=== PATIENT | female | born 1950 | race Caucasian/White ===

== ENCOUNTER 2016-11-08 01:51 | Emergency (ER) | payer MEDICARE, OTHER ==
[~2016-11-08] VITALS: Ht 167.6 cm; Wt 68.0 kg
[2016-11-08] MEDS ORDERED: ASPI-586 PO (02:27)
[2016-11-08] MEDS ORDERED: Fish Oil (02:27)
[2016-11-08] MEDS ORDERED: Omeprazole (02:27)
[2016-11-08] MEDS ORDERED: Tumeric (02:27)
[2016-11-08] MEDS ORDERED: Vitamin C (02:27)
[2016-11-08] MEDS ORDERED: Vitamin D (02:27)
[2016-11-08] MEDS ORDERED: Vitamin B (02:27)
[2016-11-08 02:47] LABS: BASOPHILS # (AUTO) 0.1 10^3/uL (0.0-0.1); BASOPHILS % (AUTO) 1 % (0-10); EOSINOPHILS # (AUTO) 0.2 10^3/uL (0.0-0.3); EOSINOPHILS % (AUTO) 2 % (0-10); LYMPHOCYTES # (AUTO) 3.7 X 10^3 (1.0-4.0); LYMPHOCYTES % (AUTO) 35 % (12-44); MEAN CORPUSCULAR HEMOGLOBIN 30 PG (25-34); MEAN CORPUSCULAR HGB CONC 33 G/DL (32-36); MEAN CORPUSCULAR VOLUME 88 FL (80-99); MEAN PLATELET VOLUME 9.1 FL (7.4-10.4); MONOCYTES # (AUTO) 1.3 X 10^3 (0.0-1.0); MONOCYTES % (AUTO) 12 % (0-12); NEUTROPHILS # (AUTO) 5.2 X 10^3 (1.8-7.8); NEUTROPHILS % (AUTO) 50 % (42-75); PLATELET COUNT 394 10^3/uL (130-400); RED BLOOD COUNT 4.38 10^6/uL (4.35-5.85); RED CELL DISTRIBUTION WIDTH 13.8 % (10.0-14.5); WHITE BLOOD COUNT 10.5 10^3/uL (4.3-11.0)
[2016-11-08 02:50] LABS: INR 0.9 (0.8-1.4); PROTHROMBIN TIME PATIENT 11.6 SEC (12.2-14.7)
[2016-11-08 03:02] LABS: ALANINE AMINOTRANSFERASE 25 U/L (0-55); ALBUMIN 4.2 G/DL (3.2-4.5); ANION GAP 15 MMOL/L (5-14); ASPARTATE AMINO TRANSFERASE 23 U/L (5-34); BILIRUBIN,TOTAL 0.2 MG/DL (0.1-1.0); BLOOD UREA NITROGEN 18 MG/DL (7-18); BUN/CREATININE RATIO 25; CALCIUM 9.4 MG/DL (8.5-10.1); CARBON DIOXIDE 21 MMOL/L (21-32); CHLORIDE 103 MMOL/L (98-107); CREATININE SERUM 0.73 MG/DL (0.60-1.30); GFR ESTIMATED > 60; GLUCOSE 123 MG/DL (70-105); MAGNESIUM 2.2 MG/DL (1.8-2.4); SODIUM 139 MMOL/L (135-145); TOTAL PROTEIN 7.7 G/DL (6.4-8.2)
--- NOTE | 2016-11-08 03:02 | ED Chest Pain ---
General Chief Complaint: Chest Pain Stated Complaint: CP Nursing Triage Note: History of 3 days of chest pain at HS. Pt hurting across chest thru back, started at 1900 tonight. Pt hx GERD and Hiatal Hernia. Nursing Sepsis Screen: No Definite Risk Source: patient Exam Limitations: no limitations History of Present Illness Time seen by provider: 01:54 Initial Comments This pleasant 66-year-old woman presents to the emergency room with complaints of chest pain in the evenings the past 3 nights. Pain occurs when lying flat but dissipates when upright. She notices no exacerbation with physical activity. She has no history of cardiovascular disease. She does have significant history of GI disease including erosive esophagitis, hiatal hernia, and acid reflux. She takes omeprazole daily. She reports having some wine 3 nights ago before symptoms started. Patient is noted to be clearing her throat frequently which she believes to be related to acid reflux. Tonight pain started at 19:00. She denies any pain during assessment. Allergies and Home Medications Allergies Coded Allergies: Penicillins (Unverified Allergy, Unknown, 12/24/14) Home Medications Aspirin 81 Mg Tablet.dr, 81 MG PO DAILY, (Reported) Sucralfate 1 Gm/10 Ml Oral.susp, 1 GM PO QID, #1200 30 minutes before meals and bedtime. Shake well before use Prescribed by: LUIS BROWER on 11/08/16 0331 [Fish Oil] , (Reported) [Omeprazole] , (Reported) [Tumeric] , (Reported) [Vitamin B] , (Reported) [Vitamin C] , (Reported) [Vitamin D] , (Reported) Review of Systems Constitutional: no symptoms reported EENTM: No Symptoms Reported Respiratory: No Symptoms Reported Cardiovascular: See HPI Gastrointestinal: See HPI Genitourinary: No Symptoms Reported Musculoskeletal: no symptoms reported Skin: no symptoms reported Psychiatric/Neurological: No Symptoms Reported Endocrine: No Symptoms Reported Past Fyilvco-Ofciom-Poheco Hx Patient Social History Alcohol Use: Occasionally Uses Recreational Drug Use: No Smoking Status: Former Smoker Type Used: Cigarettes Recent Foreign Travel: No Contact w/Someone Who Travel: No Recent Infectious Disease Expo: No Recent Hopitalizations: No Seasonal Allergies Seasonal Allergies: No Surgeries HX Surgeries: Yes (Parotid tumor removal, Ignacio removal leg) Surgeries: Abdominal (endoscopy with polypectomy), Section Respiratory Hx Respiratory Disorders: No Cardiovascular Hx Cardiac Disorders: No Cardiac Disorders: High Cholesterol Neurological Hx Neurological Disorders: No Reproductive System Hx Reproductive Disorders: No Genitourinary Hx Genitourinary Disorders: No Gastrointestinal Hx Gastrointestinal Disorders: Yes (erosive esophagitis) Gastrointestinal Disorders: Gastroesophageal Reflux, Diverticulosis, Polyps, Hiatal Hernia Musculoskeletal Hx Musculoskeletal Disorders: Yes (Osteopenia) Endocrine Hx Endocrine Disorders: No HEENT HX ENT Disorders: No Cancer Hx Cancer: No Psychosocial Hx Psychiatric Problems: Yes Behavioral Health Disorders: Anxiety, Depression Integumentary HX Skin/Integumentary Disorder: No Blood Transfusions Hx Blood Disorders: No Physical Exam Vital Signs Vital Sign - Last 12Hours 11/08/16 01:57 Temp 97.4 Pulse 99 Resp 18 B/P (MAP) 168/100 Pulse Ox 98 O2 Delivery Room Air Capillary Refill : Less Than 3 Seconds General Appearance: No Apparent Distress, WD/WN HEENT: Normal ENT Inspection Neck: Normal Inspection Respiratory: Lungs Clear, Normal Breath Sounds, No Accessory Muscle Use, No Respiratory Distress, Other (chest mildly tender to palpation) Cardiovascular: Regular Rate, Rhythm, No Edema, No Murmur Gastrointestinal: Normal Bowel Sounds, Soft, Tenderness (epigastrium) Extremity: Normal Inspection, Non Tender, No Pedal Edema Neurologic/Psychiatric: Alert, Oriented x3, No Motor/Sensory Deficits, Normal Mood/Affect, whistle punk II-XII Norm as Tested Skin: Normal Color, Warm/Dry Progress/Results/Core Measures Results/Orders Lab Results Laboratory Tests Test 11/08/16 02:14 Range/Units White Blood Count 10.5 4.3-11.0 10^3/uL Red Blood Count 4.38 4.35-5.85 10^6/uL Hemoglobin 12.9 11.5-16.0 G/DL Hematocrit 39 35-52 % Mean Corpuscular Volume 88 80-99 FL Mean Corpuscular Hemoglobin 30 25-34 PG Mean Corpuscular Hemoglobin Concent 33 32-36 G/DL Red Cell Distribution Width 13.8 10.0-14.5 % Platelet Count 394 130-400 10^3/uL Mean Platelet Volume 9.1 7.4-10.4 FL Neutrophils (%) (Auto) 50 42-75 % Lymphocytes (%) (Auto) 35 12-44 % Monocytes (%) (Auto) 12 0-12 % Eosinophils (%) (Auto) 2 0-10 % Basophils (%) (Auto) 1 0-10 % Neutrophils # (Auto) 5.2 1.8-7.8 X 10^3 Lymphocytes # (Auto) 3.7 1.0-4.0 X 10^3 Monocytes # (Auto) 1.3 H 0.0-1.0 X 10^3 Eosinophils # (Auto) 0.2 0.0-0.3 10^3/uL Basophils # (Auto) 0.1 0.0-0.1 10^3/uL Prothrombin Time 11.6 L 12.2-14.7 SEC INR Comment 0.9 0.8-1.4 Activated Partial Thromboplast Time 28 24-35 SEC Sodium Level 139 135-145 MMOL/L Potassium Level 4.0 3.6-5.0 MMOL/L Chloride Level 103 98-107 MMOL/L Carbon Dioxide Level 21 21-32 MMOL/L Anion Gap 15 H 5-14 MMOL/L Blood Urea Nitrogen 18 7-18 MG/DL Creatinine 0.73 0.60-1.30 MG/DL Estimat Glomerular Filtration Rate > 60 BUN/Creatinine Ratio 25 Glucose Level 123 H 70-105 MG/DL Calcium Level 9.4 8.5-10.1 MG/DL Magnesium Level 2.2 1.8-2.4 MG/DL Total Bilirubin 0.2 0.1-1.0 MG/DL Aspartate Amino Transf (AST/SGOT) 23 5-34 U/L Alanine Aminotransferase (ALT/SGPT) 25 0-55 U/L Alkaline Phosphatase 92 40-136 U/L Myoglobin 21.6 10.0-92.0 NG/ML Troponin I < 0.30 <0.30 NG/ML Total Protein 7.7 6.4-8.2 G/DL Albumin 4.2 3.2-4.5 G/DL Lipase 16 8-78 U/L My Orders Orders - LUIS RANKIN MD Cbc With Automated Diff (11/08/16 02:41) Magnesium (11/08/16 02:41) Chest 1 View, Ap/Pa Only (11/08/16 02:41) Ekg Tracing (11/08/16 02:41) Cardiac Profile 1 (11/08/16 02:41) Comprehensive Metabolic Panel (11/08/16 02:41) Myoglobin Serum (4/26/17 02:41) Protime With Inr (11/08/16 02:41) Partial Thromboplastin Time (11/08/16 02:41) O2 (11/08/16 02:41) Monitor-Rhythm Ecg Trace Only (11/08/16 02:41) Lipid Panel (11/09/16 06:00) Saline Lock/Iv-Start (11/08/16 02:41) Lipase (11/08/16 02:41) Vital Signs/I&O Vital Sign - Last 12Hours 11/08/16 11/08/16 01:57 01:57 Temp 97.4 Pulse 99 Resp 18 B/P (MAP) 168/100 Pulse Ox 98 O2 Delivery Room Air Room Air Blood Pressure Mean: 122 Progress Note : Progress Note Cardiopulmonary workup was unremarkable. Patient had no pain during her ER visit. I suspect her pain is related to GI etiology triggered by alcohol consumption on Sunday. Her pattern of pain correlates well with acid reflux. Review of her chart reveals prior endoscopy showing esophagitis and hiatal hernia. Her throat clearing and irritation are probably related to laryngopharyngeal reflux. I have recommended increasing her PPI to twice daily dosing as well as adding Carafate. Dietary restrictions were reviewed. ECG Initial ECG Impression Date: Nov 08, 2016 Initial ECG Impression Time: 02:03 Initial ECG Rate: 96 Initial ECG Rhythm: Normal Sinus Initial ECG Intervals: Normal Initial ECG Impression: Normal Comment Normal sinus rhythm with no ST elevation or depression. No abnormal intervals or axis deviation. Diagnostic Imaging Diagonstic Imaging: Xray Plain Films/CT/US/NM/MRI: chest Comments Chest x-ray viewed by me. Report not yet available. No acute abnormalities appreciated. Departure Impression Impression: Primary Impression: Atypical chest pain Additional Impressions: Acid reflux Qualified Codes: K21.0 - Gastro-esophageal reflux disease with esophagitis Laryngopharyngeal reflux (LPR) Disposition: 01 HOME, SELF-CARE Condition: Improved Departure-Patient Inst. Decision time for Depature: 03:26 Referrals: JITENDRA WASHINGTON MD (PCP) Primary Care Physician Patient Instructions: Chest Pain That Is Not Caused by the Heart (DC), Acid Reflux (Gastroesophageal Reflux Disease), Adult (DC) Add. Discharge Instructions: Increase your omeprazole (Prilosec) to twice daily dosing. Add Carafate as prescribed 30 minutes before meals and bedtime. Follow-up with your physician to seek referral for upper and lower endoscopy. Avoid the following: Eating close to bedtime, large meals, caffeine, carbonation , chocolate, alcohol, tobacco products, tomato products, citrus fruits and juices, NSAID medications such as ibuprofen or naproxen, mint, spicy foods, fatty or greasy foods, or anything else you know irritates your stomach. All discharge instructions reviewed with patient and/or family. Voiced understanding. Scripts Sucralfate (Carafate) 1 Gm/10 Ml Oral.susp 1 GM PO QID, #1200 ML 30 minutes before meals and bedtime. Shake well before use Prov: LUIS RANKIN MD 11/08/16 LUIS RANKIN MD Nov 08, 2016 03:02
[2016-11-08 03:09] LABS: MYOGLOBIN SERUM 21.6 NG/ML (10.0-92.0)
[2016-11-08] MEDS ORDERED: SUCR1ORA5 PO (03:31)
[2016-11-08 03:40] VITALS: BP 149/114
--- NOTE | 2016-11-08 07:27 | Diagnostic Imaging Report ---
INDICATION: Chest pain. Comparison with 07/23/2010. FINDINGS: Single view examination of the chest fails to reveal evidence of active parenchymal pathology or pleural effusion. The cardiac silhouette is normal. IMPRESSION: Negative chest. No significant change since previous exam. Dictated by: Dictated on workstation # [id number]
== END 2016-11-08 03:40 | disposition home or self-care (01) ==
LOC: EDUNIT# 01:51 → ER 01:54
DX: K21.9 Gastro-esophageal reflux disease without esophagitis (principal); R07.89 Other chest pain; Z87.891 Personal history of nicotine dependence; Z79.899 Other long term (current) drug therapy
CPT/HCPCS: 36415; 71010; 80053; 83690; 83735; 83874; 84484; 85025; 85610; 85730; 93005; 93041

== ENCOUNTER 2016-11-10 14:01 | Inpatient (IN) | payer MEDICARE, OTHER ==
[2016-11-10] VITALS (9 sets, daily range): BP systolic 95–133; BP diastolic 67–84
[~2016-11-10] VITALS: Ht 167.6 cm; Wt 70.8 kg
[~2016-11-10 14:01] MED LIST: ASPI-586 PO; Fish Oil; Omeprazole; SUCR1ORA5 PO; Tumeric; Vitamin B; Vitamin C; Vitamin D
[2016-11-10] MEDS ORDERED: HEParin 1000 UNIT/ML (10ML VIAL) FOR BOLUS ONE (14:11)
[2016-11-10] MEDS ORDERED: MIDAZOLAM 5 MG/5 ML (VERSED) VIAL ONE (14:11)
[2016-11-10] MEDS ORDERED: NITROGLYCERIN DRIP 25 MG/D5W 250 ML IV ONE (14:11)
[2016-11-10] MEDS ORDERED: fentaNYL INJECTION 100 MCG/2 ML AMP ONE (14:11)
[2016-11-10] MEDS ORDERED: LIDOCAINE 1% INJ 20 ML (XYLOCAINE) VIAL ONE (14:11)
[2016-11-10] MEDS ORDERED: NS IV 1000 ML 1,000 ML ONE (14:11)
[2016-11-10] MEDS ORDERED: HEParin (CATH LAB) 2,000 ML IV ONE (14:12)
[2016-11-10] MEDS ORDERED: CLOPIDOGREL 300 MG (PLAVIX) TABLET PO ONE (14:15)
[2016-11-10] MEDS ORDERED: ASPIRIN 81 MG CHEW (CHILDREN'S ASA) PO ONE (14:15)
--- NOTE | 2016-11-10 14:15 | ED Chest Pain ---
General Stated Complaint: CHEST PAIN Source: patient Exam Limitations: no limitations History of Present Illness Time seen by provider: 14:13 Initial Comments To ER with t chest pain began earlier today became much more intense about an hour ago. She requested to come the emergency room 15 minutes ago. She is also diaphoretic. Severity/Quality: severe Location: central Radiation: no radiation ASA po RN PLASTICS: No NTG SL RN PLASTICS: No Allergies and Home Medications Allergies Coded Allergies: Penicillins (Unverified Allergy, Unknown, 12/24/14) Home Medications Aspirin 81 Mg Tablet.dr, 81 MG PO DAILY, (Reported) Sucralfate 1 Gm/10 Ml Oral.susp, 1 GM PO QID, #1200 30 minutes before meals and bedtime. Shake well before use Prescribed by: LUIS BROWER on 11/08/16 0331 [Fish Oil] , (Reported) [Omeprazole] , (Reported) [Tumeric] , (Reported) [Vitamin B] , (Reported) [Vitamin C] , (Reported) [Vitamin D] , (Reported) Review of Systems Constitutional: see HPI EENTM: No Symptoms Reported Respiratory: No Symptoms Reported Cardiovascular: See HPI, Chest Pain Gastrointestinal: No Symptoms Reported Genitourinary: No Symptoms Reported Musculoskeletal: no symptoms reported Skin: no symptoms reported Psychiatric/Neurological: No Symptoms Reported Endocrine: No Symptoms Reported Past Jamipjc-Thbpfr-Gdtkbo Hx Patient Social History Type Used: Cigarettes Recent Hopitalizations: No Seasonal Allergies Seasonal Allergies: No Surgeries HX Surgeries: Yes (Parotid tumor removal, Ignacio removal leg) Surgeries: Abdominal, Section Respiratory Hx Respiratory Disorders: No Cardiovascular Hx Cardiac Disorders: No Cardiac Disorders: High Cholesterol Neurological Hx Neurological Disorders: No Reproductive System Hx Reproductive Disorders: No Genitourinary Hx Genitourinary Disorders: No Gastrointestinal Hx Gastrointestinal Disorders: Yes (erosive esophagitis) Gastrointestinal Disorders: Gastroesophageal Reflux, Diverticulosis, Polyps, Hiatal Hernia Musculoskeletal Hx Musculoskeletal Disorders: Yes (Osteopenia) Endocrine Hx Endocrine Disorders: No HEENT HX ENT Disorders: No Cancer Hx Cancer: No Psychosocial Hx Psychiatric Problems: Yes Behavioral Health Disorders: Anxiety, Depression Integumentary HX Skin/Integumentary Disorder: No Blood Transfusions Hx Blood Disorders: No Physical Exam Vital Signs Capillary Refill : General Appearance: No Apparent Distress, WD/WN HEENT: PERRL/EOMI, TMs Normal Neck: Full Range of Motion, Normal Inspection Respiratory: Normal Breath Sounds, No Accessory Muscle Use, No Respiratory Distress Cardiovascular: Regular Rate, Rhythm, Normal Peripheral Pulses Gastrointestinal: Normal Bowel Sounds, Non Tender, Soft Extremity: Normal Capillary Refill, Normal Inspection Neurologic/Psychiatric: Alert, Oriented x3, No Motor/Sensory Deficits Skin: Normal Color, Warm/Dry Progress/Results/Core Measures Results/Orders My Orders Orders - TAMI KOTHARI APRN Cbc With Automated Diff (11/10/16 14:10) Magnesium (11/10/16 14:10) Chest 1 View, Ap/Pa Only (11/10/16 14:10) Ekg Tracing (11/10/16 14:10) Cardiac Profile 1 (11/10/16 14:10) Comprehensive Metabolic Panel (11/10/16 14:10) Myoglobin Serum (11/10/16 14:10) Protime With Inr (11/10/16 14:10) Partial Thromboplastin Time (11/10/16 14:10) O2 (11/10/16 14:10) Monitor-Rhythm Ecg Trace Only (11/10/16 14:10) Lipid Panel (11/11/16 06:00) Aspirin Chewable Tablet (Baby Aspirin Ch (11/10/16 14:15) Saline Lock/Iv-Start (11/10/16 14:10) Clopidogrel Tablet (Plavix Tablet) (11/10/16 14:15) ECG Initial ECG Impression: Acute IN Comment ST elevation in leads [address] depression in lead aVl. Departure Communication Progress Notes 1412-Dr. Cabrales is here to see the patient Impression Impression: Primary Impression: STEMI (ST elevation myocardial infarction) Disposition: ADMITTED INPATIENT Condition: Stable Decision to Admit Reason: Admit from ER (General) Decision to Admit/Date: Nov 10, 2016 Time/Decision to Admit Time: 14:15 Departure-Patient Inst. Referrals: JITENDRA WASHINGTON MD (PCP/Family) Primary Care Physician TAMI KOTHARI APRN Nov 10, 2016 14:15
[2016-11-10 14:25] LABS: BASOPHILS # (AUTO) 0.1 10^3/uL (0.0-0.1); BASOPHILS % (AUTO) 1 % (0-10); EOSINOPHILS # (AUTO) 0.1 10^3/uL (0.0-0.3); EOSINOPHILS % (AUTO) 1 % (0-10); LYMPHOCYTES # (AUTO) 4.4 X 10^3 (1.0-4.0); LYMPHOCYTES % (AUTO) 34 % (12-44); MEAN CORPUSCULAR HEMOGLOBIN 30 PG (25-34); MEAN CORPUSCULAR HGB CONC 34 G/DL (32-36); MEAN CORPUSCULAR VOLUME 88 FL (80-99); MONOCYTES # (AUTO) 1.7 X 10^3 (0.0-1.0); MONOCYTES % (AUTO) 13 % (0-12); NEUTROPHILS # (AUTO) 6.8 X 10^3 (1.8-7.8); NEUTROPHILS % (AUTO) 52 % (42-75); PLATELET COUNT 425 10^3/uL (130-400); RED BLOOD COUNT 4.34 10^6/uL (4.35-5.85); RED CELL DISTRIBUTION WIDTH 13.8 % (10.0-14.5); WHITE BLOOD COUNT 13.1 10^3/uL (4.3-11.0)
--- NOTE | 2016-11-10 14:25 | Cardiac Procedure Note-CS/ASA ---
Pre-Procedure Note Pre-Op Procedure Note H&P Reviewed The H&P was reviewed, patient examined and no changes noted. Date H&P Reviewed: Nov 10, 2016 Time H&P Reviewed: 14:25 Conscious Sedation Pre-Proced Time Reviewed: 14:25 ASA Class: 3 Airway Mallampati Classification: ([place] appropriate class) I. II. III, IV Lungs Heart ASA score ASA 1: a normal healthy patient ASA 2: a patient with a mild systemic disease (mid diabetes, controlled hypertension, obesity x ASA 3: a patient with a severe systemic disease that limits activity (angina , COPD, prior Myocardial infarction) ASA 4: a patient with an incapacitating disease that is a constant threat to life (CHF, renal failure) ASA 5: a moribund patient not expected to survive 24 hrs. (ruptured aneurysm) ASA 6: a declared brain patient whose organs are being harvested. For emergent operations, add the letter E after the classification Grade 3 Sedation Plan: Analgesia, Amnesia, Plan communicated to team members, Discussed options with patient/fam, Discussed risks with patient/fam Note The patient is an appropriate candidate to undergo the planned procedure, sedation, and anesthesia. The patient immediately re-assessed prior to indication. RON CHATMAN MD Nov 10, 2016 14:25
--- NOTE | 2016-11-10 14:25 | Cardiology History & Physical ---
HPI-Cardiology Cardiology Consultation Date of Consultation 11/10/16 Date of Admission Indication: chest pain HPI 66-year-old lady with no significant past medical history has been having chest pain on and off for the past few weeks seen in the emergency room recently, this afternoon she started having sudden onset chest pain described it as dull achiness in the retrosternal area satiated with diaphoresis and shortness of breath. Came into the emergency room and noted to have ST elevation myocardial infarction. Upper my evaluation she was still having some chest pain, denied any palpitation, and I do any syncope or near syncopal episode, was having active ST elevation, decided to proceed with emergency cardiac catheterization. PMH-Cardiology Seasonal Allergies Seasonal Allergies: No Surgeries HX Surgeries: Yes (Parotid tumor removal, Ignacio removal leg) Respiratory Hx Respiratory Disorders: No Cardiovascular Hx Cardiovascular Disorders: No Neurological Hx Neurological Disorders: No Reproductive System Hx Reproductive Disorders: No Genitourinary Hx Genitourinary Disorders: No Gastrointestinal Hx Gastrointestinal Disorders: Yes (erosive esophagitis) Gastrointestinal Disorders: Gastroesophageal Reflux, Diverticulosis, Polyps, Hiatal Hernia Musculoskeletal Hx Musculoskeletal Disorders: Yes (Osteopenia) Endocrine Hx Endocrine Disorders: No HEENT HX ENT Disorders: No Cancer Hx Cancer: No Psychosocial Hx Psychiatric Problems: Yes Behavioral Health Disorders: Anxiety, Depression Integumentary HX Skin/Integumentary Disorder: No Blood Transfusions Hx Blood Disorders: No Other PMHx Other PMHx: carotid tumor surgery in the remote past Social History Patient Social History Smoking: Former smoker Family Hx Other family history of heart disease and hypertension ROS-Cardiology Review of Systems General: No Chills, No Night Sweats, Fatigue, Malaise, No Appetite HEENT: No Head Aches, No Visual Changes, No Eye Pain, No Ear Pain, No Dysphasia , No Sinus Congestion, No Post Nasal Drip, No Sore Throat Pulmonary: Dyspnea, No Cough, No Pleuritic Chest Pain Cardiovascular: Chest Pain, No: Edema, Lt Headedness, Orthopnea, Palpitations, Paroxysmal Noc. Dyspnea Gastrointestinal: No: Abdominal Pain, Constipation, Diarrhea, Hematochezia, Melena, Nausea, Vomiting Genitourinary: No Dysuria, No Frequency, No Incontinence, No Hematuria, No Retention Musculoskeletal: No: arm pain, back pain, foot pain, hand pain, leg pain, neck pain, shoulder pain Neurological: No: Change in speech, Confusion, Incoordination, Numbness, Seizures, Weakness Home Medications & Allergies Allergies: Coded Allergies: Penicillins (Unverified Allergy, Unknown, 12/24/14) Home Medication List Reviewed: Yes Exam-Cardiology Exam General Appearance: Alert, Oriented X3, Cooperative, No Acute Distress HEENT: Atraumatic, PERRLA Respiratory: Clear to Auscultation, Normal Air Movement Cardiovascular: Regular Rate, Normal S1, Normal S2, No Murmurs Abdominal: Normal Bowel Sounds, Soft, No Tenderness, No Hepatosplenomegaly, No Masses Extremities: No Clubbing, No Cyanosis, No Edema, Normal Pulses, No Tenderness/ Swelling Skin: No Rashes, No Breakdown, No Significant Lesion Neuro: Normal Gait, Normal Speech, Strength at 5/5 X4 Ext, Normal Tone, Sensation Intact Psych/Mental Status: Mental Status NL, Mood NL Results Labs Labs Laboratory Tests 11/10/16 14:18: White Blood Count 13.1H, Red Blood Count 4.34L, Hemoglobin 13.0, Hematocrit 38, Mean Corpuscular Volume 88, Mean Corpuscular Hemoglobin 30, Mean Corpuscular Hemoglobin Concent 34, Red Cell Distribution Width 13.8, Platelet Count 425H, Mean Platelet Volume 9.0, Neutrophils (%) (Auto) 52, Lymphocytes (%) (Auto) 34, Monocytes (%) (Auto) 13H, Eosinophils (%) (Auto) 1, Basophils (%) (Auto) 1, Neutrophils # (Auto) 6.8, Lymphocytes # (Auto) 4.4H, Monocytes # (Auto) 1.7H, Eosinophils # (Auto) 0.1, Basophils # (Auto) 0.1, Prothrombin Time 11.6L, INR Comment 0.9, Activated Partial Thromboplast Time 21L, Sodium Level 141, Potassium Level 3.6, Chloride Level 105, Carbon Dioxide Level 21, Anion Gap 15H , Blood Urea Nitrogen 16, Creatinine 0.86, Estimat Glomerular Filtration Rate > 60, BUN/Creatinine Ratio 19, Glucose Level 157H, Calcium Level 9.3, Magnesium Level 2.2, Total Bilirubin 0.4, Aspartate Amino Transf (AST/SGOT) 24, Alanine Aminotransferase (ALT/SGPT) 26, Alkaline Phosphatase 85, Myoglobin 87.5, Troponin I < 0.30, Total Protein 7.5, Albumin 4.1 A/P-Cardiology Admission Diagnosis ST elevation ND Coronary artery disease Hypertension Hyperlipidemia Assessment/Plan Acute ST elevation myocardial infarction in the inferior wall, underwent emergency cardiac catheterization. Feeling better at this time Coronary artery disease, total occlusion of the right coronary artery successful complex intervention with stenting of the right coronary artery using 2 drug-eluting stent Promus Premier 2.523 and 2.7528 both expanded to 3.5 mm with excellent results. 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
[2016-11-10] MEDS ORDERED: niCARdipine 25 MG/10 ML (CARDENE) AMP IV ONE (14:33)
[2016-11-10] MEDS ORDERED: NS (IVPB) 250 ML ONE (14:33)
[2016-11-10 14:34] LABS: INR 0.9 (0.8-1.4); PROTHROMBIN TIME PATIENT 11.6 SEC (12.2-14.7)
--- NOTE | 2016-11-10 14:37 | Diagnostic Imaging Report ---
INDICATION: Substernal chest pain radiating to the back, intermittent x2 weeks.. TECHNIQUE: Single view chest 2:18 PM. CORRELATION STUDY: 11/08/2016 FINDINGS: The heart size, mediastinal configuration and pulmonary vascularity are within normal limits. The lungs are clear with no consolidating infiltrate. There is no significant effusion or pneumothorax. IMPRESSION: 1. Stable, negative portable chest. Dictated by: Dictated on workstation # [id number]
[2016-11-10 14:45] LABS: ALANINE AMINOTRANSFERASE 26 U/L (0-55); ALBUMIN 4.1 G/DL (3.2-4.5); ANION GAP 15 MMOL/L (5-14); ASPARTATE AMINO TRANSFERASE 24 U/L (5-34); BILIRUBIN,TOTAL 0.4 MG/DL (0.1-1.0); BLOOD UREA NITROGEN 16 MG/DL (7-18); BUN/CREATININE RATIO 19; CALCIUM 9.3 MG/DL (8.5-10.1); CARBON DIOXIDE 21 MMOL/L (21-32); CHLORIDE 105 MMOL/L (98-107); CREATININE SERUM 0.86 MG/DL (0.60-1.30); GFR ESTIMATED > 60; GLUCOSE 157 MG/DL (70-105); MAGNESIUM 2.2 MG/DL (1.8-2.4); POTASSIUM 3.6 MMOL/L (3.6-5.0); SODIUM 141 MMOL/L (135-145); TOTAL PROTEIN 7.5 G/DL (6.4-8.2)
[2016-11-10 14:52] LABS: MYOGLOBIN SERUM 87.5 NG/ML (10.0-92.0)
[2016-11-10] MEDS ORDERED: PATIENT MAY USE OWN MEDS, ALL PO SCH (15:15)
[2016-11-10] MEDS ORDERED: ISOSORBIDE MONONITRATE 30 MG (IMDUR) TAB PO NR (15:45)
[2016-11-10] MEDS ORDERED: OMG1KC PO (16:04)
[2016-11-10] MEDS ORDERED: PYRI100T2 PO (16:04)
[2016-11-10] MEDS ORDERED: CHOL10007 PO (16:04)
[2016-11-10] MEDS ORDERED: ASCO-262 PO (16:04)
[2016-11-10] MEDS ORDERED: TURM500C4 PO (16:04)
[2016-11-10] MEDS ORDERED: OMEP20TA33 PO (16:04)
[2016-11-10] MEDS ORDERED: VITA400C60 PO (16:05)
[2016-11-10] MEDS ORDERED: ALPR0.5T7 PO (16:06)
[2016-11-10] MEDS: NS IV 1000 ML 1,000 ML IV SCH (16:06)
[2016-11-10] MEDS ORDERED: CATHETER FLUSH 10 ML SYR IV PRN (16:15)
[2016-11-10] MEDS: OMEGA 3 (FISH OIL) 1000 MG CAP PO SCH (19:10)
[2016-11-10] MEDS: ACETAMINOPHEN 500 MG TAB (TYLENOL) PO PRN (20:32)
[2016-11-10] MEDS ORDERED: ATORVASTATIN 80 MG (LIPITOR) TABLET PO SCH (21:00)
[2016-11-11] VITALS (14 sets, daily range): BP systolic 100–144; BP diastolic 59–116
[2016-11-11] MEDS: NS IV 1000 ML 1,000 ML IV SCH (01:14)
--- NOTE | 2016-11-11 04:37 | CARDIAC CATHETERIZATION ---
DATE OF SERVICE: REFERRING PHYSICIAN: Dr. Fonseca. INDICATION: Acute ST elevation myocardial infarction. BRIEF HISTORY: The patient is a 66-year-old lady admitted with acute ST elevation myocardial infarction. She was brought for emergency cardiac catheterization. PROCEDURE NOTE: The patient arrived to the hospital at 1401, had an EKG done at 1408. I was called at 1415 and the patient was brought to the phlebotomist medical lab assistant at 1421. The artery was opened at 1437. Door to thrombectomy device was 36 minutes. The patient was admitted with acute ST elevation myocardial infarction to the inferior wall. microbiology lab analyst team was called. We proceeded with emergency cardiac catheterization. The patient received aspirin and Plavix in the Emergency Room, placed on the cardiac catheterization table and then the right groin was prepped in a sterile fashion, local anesthesia applied and 6-Citizen [place] sheath was placed in the right femoral artery. A Alexander left was advanced to the left coronary system and then I advanced an SR guide to the right coronary system. I proceeded with advancement of a BMW wire after giving the patient 5000 units of heparin. She has total occlusion of the proximal right coronary artery. I advanced the BMW wire and with advancement of the wire there was established flow. Then, I advanced an [place] catheter and thrombectomy was performed. Door to thrombectomy time was 36 minutes. Flow was established in the right coronary artery. She has severe disease at the proximal, mid and distal right coronary artery. I proceeded initially with balloon dilatation using 2.5 x 20 mm balloon, Emerge, then I proceeded with deployment of Xience Alpine stent 2.5 x 23 mm deployed distally, proximal stent overlapping it was 2.75 x 28 mm Xience Alpine, expanded under high pressure to 3 mm. Angiogram showed excellent result but I was still convinced that the artery can tolerate a larger stent. I proceeded with advancement of [place] Quantum balloon 3.5 x 15 mm and performed multiple inflations throughout the stent body of both stents and expanded both stents to 3.5 mm with excellent result. Angiogram at the end showed excellent result, no residual stenosis. Pigtail catheter was advanced to the left ventricular cavity. Left ventriculogram was done. Pullback LV to aorta was done. At the end of the procedure, sheath was removed, Mynx device deployed, hemostasis achieved. TOTAL CONTRAST USED: 96 mL. TOTAL RADIATION DOSES: 1848 mGy. FINDINGS: HEMODYNAMICS: LV pressure 127/20, end diastolic pressure of 20. Aortic pressure 135/82, mean of 107. ANATOMY: 1. Left main coronary artery is bifurcating to left anterior descending and left circumflex artery with no significant obstructive disease. 2. Left anterior descending artery is a smaller artery with mild disease, nonobstructive disease, 40% to 50% stenosis at the mid LAD. 3. Left circumflex artery is moderate in size with 50% stenosis at the mid left circumflex system, nonobstructive disease. 4. Right coronary artery is a large dominant artery totally occluded proximally, successful thrombectomy with door to thrombectomy device 36 minutes, balloon angioplasty with 2 overlapping stent deployments using Xience Alpine 2.5 x 23 mm and 2.75 x 28 mm overlapping, expanding to 3.5 mm with excellent results. 5. Normal left ventricular size. Inferior wall is slightly hypokinetic, but systolic function is preserved. Estimated ejection fraction is 60%. CONCLUSIONS: 1. Acute ST elevation myocardial infarction with total occlusion of the right coronary artery that appeared to be much smaller at the beginning of the procedure. Successful thrombectomy with door to thrombectomy device 36 minutes. Successful balloon angioplasty with stent deployment of 2 stents, 2.5 x 23 mm and 2.75 x 28 mm Xience Alpine overlapping, expanded to 3.5 mm, both stents with excellent results. 2. 40% to 50% stenosis in the mid left anterior descending and mid circumflex artery. 3. Normal left ventricular size with mild hypokinesia of the inferior wall with estimated ejection fraction 60%. DISCUSSION AND RECOMMENDATIONS: I will continue maximizing medical therapy. Job ID: [id number] DocumentID: [id number] Dictated Date: 11/10/2016 16:33:50 Cashier [employer] Date: 11/11/2016 04:36:54 Dictated By: RON CHATMAN MD
[2016-11-11 04:58] LABS: MEAN PLATELET VOLUME 9.2 FL (7.4-10.4); RED BLOOD COUNT 3.48 10^6/uL (4.35-5.85); RED CELL DISTRIBUTION WIDTH 13.8 % (10.0-14.5); WHITE BLOOD COUNT 12.7 10^3/uL (4.3-11.0)
[2016-11-11 05:39] LABS: TROPONIN I 7.41 NG/ML (<0.30)
[2016-11-11] MEDS: OMEGA 3 (FISH OIL) 1000 MG CAP PO SCH ×2 (08:14→16:18)
[2016-11-11] MEDS: CLOPIDOGREL 75 MG (PLAVIX) TABLET PO SCH (08:15)
[2016-11-11] MEDS: ASPIRIN E.C. 81 MG (ECOTRIN) TAB PO SCH (08:15)
[2016-11-11] MEDS: ACETAMINOPHEN 500 MG TAB (TYLENOL) PO PRN ×2 (08:15→16:18)
--- NOTE | 2016-11-11 08:16 | Cardiology Progress Note ---
Subjective Subjective/Events-last exam patient is laying down in bed, still having mild chest pain on and off, having headache, expressed that she was unable to tolerate statin in the past, discussed in length the management plan, I agreed on trying low-dose Crestor and evaluate her tolerance and response Review of Systems General: No Chills, No Night Sweats, No Fatigue, No Malaise, No Appetite, Other (headache) HEENT: No Head Aches, No Visual Changes, No Eye Pain, No Ear Pain, No Dysphasia , No Sinus Congestion, No Post Nasal Drip, No Sore Throat, No Other Pulmonary: No Dyspnea, No Cough, No Pleuritic Chest Pain, No Other Cardiovascular: Chest Pain, No: Edema, Lt Headedness, Orthopnea, Other, Palpitations, Paroxysmal Noc. Dyspnea Objective-Cardiology Exam Last Set of Vital Signs Vital Signs 11/10/16 11/11/16 11/11/16 11/11/16 18:00 06:00 07:00 07:31 Temp 99.1 Pulse 93 Resp 17 B/P (MAP) 121/73 Pulse Ox 96 O2 Delivery Room Air O2 Flow Rate 2.00 Capillary Refill : Less Than 3 Seconds I&O Bad tableGeneral: Alert, Oriented X3, Cooperative, No Acute Distress HEENT: Atraumatic, PERRLA Lungs: Clear to Auscultation, Normal Air Movement Heart: Regular Rate, Normal S1, Normal S2, No Murmurs Abdomen: Normal Bowel Sounds, Soft, No Tenderness, No Hepatosplenomegaly, No Masses Extremities: No Clubbing, No Cyanosis, No Edema, Normal Pulses, No Tenderness/ Swelling Skin: No Rashes, No Breakdown, No Significant Lesion Neuro: Normal Gait, Normal Speech, Strength at 5/5 X4 Ext, Normal Tone, Sensation Intact Psych/Mental Status: Mental Status NL, Mood NL Results Lab Laboratory Tests 11/10/16 14:18 11/11/16 04:14 A/P-Cardiology Admission Diagnosis ST elevation [place] Coronary artery disease Hypertension Hyperlipidemia Assessment/Plan Acute ST elevation myocardial infarction in the inferior wall, underwent emergency cardiac catheterization, better at this time. Feeling better. Still having mild chest pain. Significant headache after taking isosorbide, unable to tolerate it, I will discontinued and continue on beta blockers Coronary artery disease, total occlusion of the right coronary artery successful complex intervention with stenting of the right coronary artery using 2 drug-eluting stent Promus Premier 2.523 and 2.7528 both expanded to 3.5 mm with excellent results, EKG showed improvement. Continue to monitor Hypertension, started on Toprol-XL. I'll monitor her tolerance and response. 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
[2016-11-11] MEDS ORDERED: ISOSORBIDE MONONITRATE 30 MG (IMDUR) TAB PO SCH (09:00)
[2016-11-11] MEDS: ENOXAPARIN 40 MG/0.4 ML (LOVENOX) SYR SQ SCH (09:22)
[2016-11-11] MEDS ORDERED: ROSUVASTATIN 5 MG (CRESTOR) TABLET PO SCH (21:00)
[2016-11-12] VITALS: BP 124/71
[2016-11-12 04:00] VITALS: BP 124/52
[2016-11-12 04:30] LABS: MEAN PLATELET VOLUME 9.1 FL (7.4-10.4); RED BLOOD COUNT 3.88 10^6/uL (4.35-5.85); RED CELL DISTRIBUTION WIDTH 13.8 % (10.0-14.5); WHITE BLOOD COUNT 10.1 10^3/uL (4.3-11.0)
[2016-11-12 05:00] LABS: ANION GAP 11 MMOL/L (5-14); BLOOD UREA NITROGEN 7 MG/DL (7-18); BUN/CREATININE RATIO 10; CALCIUM 8.6 MG/DL (8.5-10.1); CARBON DIOXIDE 24 MMOL/L (21-32); CHLORIDE 105 MMOL/L (98-107); CREATININE SERUM 0.67 MG/DL (0.60-1.30); GFR ESTIMATED > 60; GLUCOSE 114 MG/DL (70-105); POTASSIUM 3.2 MMOL/L (3.6-5.0); SODIUM 140 MMOL/L (135-145)
[2016-11-12] MEDS ORDERED: KCL 20 MEQ TAB (K-DUR) PO SCH ×3 (06:00→12:00)
[2016-11-12] MEDS: OMEGA 3 (FISH OIL) 1000 MG CAP PO SCH (07:06)
[2016-11-12 08:00] VITALS: BP 100/67
[2016-11-12] MEDS ORDERED: ROSU5TAB9 PO (08:12)
[2016-11-12] MEDS ORDERED: METO-352 PO (08:12)
[2016-11-12] MEDS ORDERED: CLOP75TA28 PO (08:12)
--- NOTE | 2016-11-12 08:12 | Discharge Inst-Post CATH ---
Discharge Inst-CATH Post Cardiac Cath D/C Inst Follow Up/Plan Appointment with Dr. Cabrales's office in one to 2 weeks CARDIAC CATH DISCHARGE INSTRUCTIONS *Hold Metformin for 48 hours post heart cath. ACTIVITY * Go Home directly and rest. * Limit activity of the leg (or wrist if it was used) for 7 days including aerobics, swimming, jogging, bicycling, etc. * Restrict stair-climbing for 7 days if possible, if not, climb up with your non -cath leg, then bring together on the same step. * Avoid lifting, pushing, pulling or excessive movement of the affected extremity for 7 days. * Customary sexual activity may be resumed after 2 days-use caution not to use a position that strains or causes pain to the affected extremity. * No driving for 24 hours. * NO SMOKING. * Avoid straining for bowel movements for 7 days. * Gentle walking on level ground is allowed. * Returning to work will depend on the type of procedure and the results. Your doctor will discuss this with you. CALL YOUR DOCTOR FOR ANY OF THE FOLLOWING: *If bleeding from the puncture site occurs- Apply gentle pressure to site with clean cloth and call your doctor or EMS. * If a knot or lump forms under the skin, increases in size, or causes pain. * If bruising appears to be worsening or moving further down your leg instead of disappearing. * Temperature above 101 F. CARE OF YOUR GROIN INCISION; * Bruising or purple discoloration of the skin near the puncture site is common. * You may shower only, no bathtub bathing for 5 days. Be careful to avoid slipping as your leg may feel stiff. * If a closure device was used on your femoral artery, please see the attached guide regarding care of the device and your leg. * REMOVE the dressing from your groin the next day after your procedure in the shower. CARE OF YOUR WRIST INCISION; * Bruising or purple discoloration of the skin near the puncture site is common. * You may shower. * DO NOT submerge wrist. * Remove dressing in 24 hours. RON CABRALES MD Nov 12, 2016 08:12
--- NOTE | 2016-11-12 08:16 | Cardiology Discharge Summary ---
Diagnosis/Chief Complaint Date of Admission Nov 11, 2016 at 22:00 Date of Discharge November 12, [address] elevation [place] Coronary artery disease Hypertension Hyperlipidemia Discharge Diagnosis ST elevation myocardial infarction Coronary artery disease Hypertension Hyperlipidemia Anxiety Chief Complaint/HPI Chief Complaint/HPI 66-year-old lady with history of hypertension and hyperlipidemia admitted with acute ST elevation myocardial infarction the inferior wall, underwent emergency cardiac catheterization with stenting using 2 stents to the right coronary artery, excellent results. Overnight she was feeling better, groin was healing well. She had few episode of paroxysmal atrial tachycardia, she has been on Toprol 25 mg daily, I instructed her to avoid caffeine, increase the dose to 50 mg daily. Currently feeling well. Occasional episodes of chest discomfort, was unable to tolerate nitroglycerin due to headache Discharge Summary Hospital Course Hospital Course Acute ST elevation myocardial infarction in the inferior wall, underwent emergency cardiac catheterization, feeling better. Having occasional episodes of chest pain, reporting intolerance to nitroglycerin with headache. Paroxysmal atrial tachycardia noted on telemetry, I will increase Toprol to 50 mg daily and follow-up as an outpatient Significant headache after taking isosorbide, unable to tolerate it, I will discontinued and continue on beta blockers Coronary artery disease, total occlusion of the right coronary artery successful complex intervention with stenting of the right coronary artery using 2 drug-eluting stent Promus Premier 2.523 and 2.7528 both expanded to 3.5 mm with excellent results, EKG showed improvement. Continue to monitor Hypertension, started on Toprol-XL, Increase the dose to 50 mg daily and evaluate her tolerance. 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 Discharge Physical Examination Allergies: Coded Allergies: Penicillins (Unverified Allergy, Unknown, 12/24/14) Vitals & I&Os Vital Signs Date Time Temp Pulse Resp B/P (MAP) Pulse Ox O2 Delivery O2 Flow Rate FiO2 11/12/16 04:00 91 16 124/52 96 Room Air 11/11/16 16:00 98.9 11/10/16 18:00 2.00 General Appearance: Alert, Oriented X3, Cooperative, No Acute Distress HEENT: Atraumatic, PERRLA Respiratory: Clear to Auscultation, Normal Air Movement Cardiovascular: Regular Rate, Normal S1, Normal S2, No Murmurs Abdominal: Normal Bowel Sounds, Soft, No Tenderness, No Hepatosplenomegaly, No Masses Extremities: No Clubbing, No Cyanosis, No Edema, Normal Pulses, No Tenderness/ Swelling Skin: No Rashes, No Breakdown, No Significant Lesion Neuro: Normal Gait, Normal Speech, Strength at 5/5 X4 Ext, Normal Tone, Sensation Intact, Cranial Nerves 3-12 NL, Reflexes 2+ Psych/Mental Status: Mental Status NL, Mood NL Discharge Home Medications Reviewed and agree with Discharge Medication list on patient's Discharge Instruction sheet Instructions to Patient/Family Please see electonic discharge instructions given to patient. Clinical Quality Measures AMI/AHF: ASA po Prior to arrival: No DVT/VTE Risk/Contraindication: Risk Factor Score Per Nursin RFS Level Per Nursing on Admit: 4+=Very High RON CHATMAN MD Nov 12, 2016 08:16
[2016-11-12] MEDS: ASPIRIN E.C. 81 MG (ECOTRIN) TAB PO SCH (08:58)
[2016-11-12] MEDS: ENOXAPARIN 40 MG/0.4 ML (LOVENOX) SYR SQ SCH (08:59)
[2016-11-12] MEDS: CLOPIDOGREL 75 MG (PLAVIX) TABLET PO SCH (08:59)
[2016-11-12] MEDS ORDERED: meTOproloL SUCCINATE 50 MG (TOPROL XL) TAB PO SCH (09:00)
[2016-11-12] MEDS ORDERED: OMEGA 3 (FISH OIL) 1000 MG CAP PO SCH (17:00)
[2016-11-13] MEDS ORDERED: KCL 20 MEQ TAB (K-DUR) PO SCH (06:00)
== END 2016-11-12 09:39 | disposition home or self-care (01) | DRG 247 ==
LOC: EDUNIT# 14:01 → ER 14:02 → ICU 14:15 → CATH 14:15 → ICU 15:30 → CATH 15:30 → ICU 11-11 22:00 → INTOOBSV 11-11 22:00 → ICU 11-11 22:00 → CATH 11-11 22:00 → UNDOADMOB 11-11 22:00 → UNDODISIN 11-12 09:39 → UNDODISOB 11-12 09:39
PROVIDERS: ADMIT Internal Medicine Cardiovascular Disease; ATTEND Internal Medicine Cardiovascular Disease
PROC: 027035Z Dilation of Coronary Artery, One Artery with Two Drug-eluting Intraluminal Devices, Percutaneous Approach (ICD-10-PCS; principal; 2016-11-10)
PROC: 4A023N7 Measurement of Cardiac Sampling and Pressure, Left Heart, Percutaneous Approach (ICD-10-PCS; 2016-11-10)
PROC: B2151ZZ Fluoroscopy of Left Heart using Low Osmolar Contrast (ICD-10-PCS; 2016-11-10)
PROC: B2111ZZ Fluoroscopy of Multiple Coronary Arteries using Low Osmolar Contrast (ICD-10-PCS; 2016-11-10)
PROC: 02C03ZZ Extirpation of Matter from Coronary Artery, One Artery, Percutaneous Approach (ICD-10-PCS; 2016-11-10)
DX: I21.19 ST elevation (STEMI) myocardial infarction involving other coronary artery of inferior wall (principal); I47.1 Supraventricular tachycardia; I25.10 Atherosclerotic heart disease of native coronary artery without angina pectoris; I10 Essential (primary) hypertension; E78.5 Hyperlipidemia, unspecified; F41.9 Anxiety disorder, unspecified; R51 Headache; Z87.891 Personal history of nicotine dependence; Z82.49 Family history of ischemic heart disease and other diseases of the circulatory system
CPT/HCPCS: 36415; 71010; 80048; 80053; 80061; 83690; 83735; 83874; 84484; 85025; 85027; 85347; 85610; 85730; 93005; 93041; 93458

== ENCOUNTER → 2017-03-01 | Outpatient (CLI) | payer MEDICARE, OTHER ==
[~2017-03-01] MED LIST changes: +ALPR0.5T7 PO; +ASCO-262 PO; +CHOL10007 PO; +CLOP75TA28 PO; +METO-352 PO; +OMEP20TA33 PO; +OMG1KC PO; +PYRI100T2 PO; +ROSU5TAB9 PO; +TURM500C4 PO; +VITA400C60 PO
--- NOTE | 2017-03-01 09:08 | Diagnostic Imaging Report ---
PROCEDURE: US Gallbladder. TECHNIQUE: Multiple real-time grayscale images were obtained over the right upper quadrant in various projections. INDICATION: Abdominal pain. FINDINGS: Previous gallbladder ultrasound exam of 08/17/09 fail to show any sign of cholelithiasis or acute cholecystitis. On this study, however, there is now 1.9 CM gallstone within the gallbladder. There may be some sludge present as well. The gallbladder wall is not thickened nor is the common bile duct dilated. The liver and right kidney were unremarkable. The pancreas and proximal aorta were obscured by bowel gas. IMPRESSION: 1. In the interval since the previous study, cholelithiasis has developed and there is now a large gallstone within the gallbladder. There is no evidence for acute cholecystitis, however. 2. If clinical concern regarding acute cholecystitis persists and further imaging is desired, then a nuclear medicine hepatobiliary scan would be recommended. Dictated by: Dictated on workstation # [id number]
== END ==
LOC: RAD 08:02
PROVIDERS: ATTEND Surgery
DX: K80.20 Calculus of gallbladder without cholecystitis without obstruction (principal)
CPT/HCPCS: 76705

== ENCOUNTER 2017-03-05 05:29 | Outpatient (CLI) | payer MEDICARE, OTHER ==
[~2017-03-05] VITALS: Ht 167.6 cm; Wt 67.2 kg
== END 2017-03-05 12:06 ==
LOC: PREOP 05:29
PROVIDERS: ATTEND Surgery
DX: Z01.818 Encounter for other preprocedural examination (principal); K21.9 Gastro-esophageal reflux disease without esophagitis; K80.20 Calculus of gallbladder without cholecystitis without obstruction

== ENCOUNTER 2017-03-08 09:04 | Day surgery (SDC) | payer MEDICARE, OTHER ==
[~2017-03-08] VITALS: Ht 167.6 cm; Wt 67.2 kg
[2017-03-08 09:41] LABS: MEAN PLATELET VOLUME 8.9 FL (7.4-10.4); RED BLOOD COUNT 4.36 10^6/uL (4.35-5.85); RED CELL DISTRIBUTION WIDTH 13.9 % (10.0-14.5)
[2017-03-08] MEDS ORDERED: CLINDAMYCIN 600 MG/NS 50 ML IVPB IV ONE ×2 (09:45)
[2017-03-08] MEDS ORDERED: LACTATED RINGERS 1,000 ML IV PRN (09:50)
[2017-03-08] MEDS ORDERED: SCOPOLAMINE 1.5 MG (TRANSDERM-SCOP) PATCH TOP ONE (10:00)
[2017-03-08] MEDS ORDERED: FAMOTIDINE 20MG/2ML IV (PEPCID) IV ONE (10:00)
[2017-03-08] MEDS ORDERED: ONDANSETRON 4 MG/2 ML (SDV) Z0FRAN IV ONE (10:00)
[2017-03-08 10:55] VITALS: BP 135/58
[2017-03-08] MEDS ORDERED: MIDAZOLAM 2 MG/2 ML (VERSED) VIAL ONE ×4 (11:03→11:04)
[2017-03-08] MEDS ORDERED: fentaNYL INJECTION 100 MCG/2 ML AMP ONE ×2 (11:03)
[2017-03-08] MEDS ORDERED: LIDOCAINE JELLY 2% (XYLOCAINE) 5 ML TUBE ONE (11:03)
[2017-03-08] MEDS ORDERED: HURRICAINE EXT TUBE (BENZOCAINE) ONE (11:04)
--- NOTE | 2017-03-08 11:05 | Conscious Sedation/ASA ---
Conscious Sedation Pre-Proced Time Reviewed: 10:30 ASA Class: 2 Airway Mallampati Classification: (cachil dehe appropriate class) I. II. III, IV Lungs Heart ASA score ASA 1: a normal healthy patient ASA 2: a patient with a mild systemic disease (mid diabetes, controlled hypertension, obesity ASA 3: a patient with a severe systemic disease that limits activity (angina , COPD, prior Myocardial infarction) ASA 4: a patient with an incapacitating disease that is a constant threat to life (CHF, renal failure) ASA 5: a moribund patient not expected to survive 24 hrs. (ruptured aneurysm) ASA 6: a declared brain patient whose organs are being harvested. For emergent operations, add the letter E after the classification Grade 2 Sedation Plan: Analgesia, Amnesia, Plan communicated to team members, Discussed options with patient/fam, Discussed risks with patient/fam Note The patient is an appropriate candidate to undergo the planned procedure, sedation, and anesthesia. The patient immediately re-assessed prior to indication. KINGSTON WADE MD Mar 08, 2017 11:05 am
--- NOTE | 2017-03-08 11:06 | Progress Note-Pre Operative ---
Pre-Operative Progress Note H&P Reviewed The H&P was reviewed, patient examined and no changes noted. Date Seen by Provider: Mar 08, 2017 Time Seen by Provider: 10:30 Date H&P Reviewed: Mar 08, 2017 Time H&P Reviewed: 10:30 Pre-Operative Diagnosis: GERD, hx colon polyps KINGSTON WADE MD Mar 08, 2017 11:06 am
[2017-03-08] MEDS ORDERED: HYDROcodone/APAP 5 MG/325 MG (LORTAB) TAB PO PRN (11:15)
[2017-03-08] MEDS ORDERED: ONDANSETRON 4 MG/2 ML (SDV) Z0FRAN IV PRN (11:15)
[2017-03-08] MEDS ORDERED: ACETAMINOPHEN 325 MG TABLET/CAPLET (TYLENOL) PO PRN (11:15)
[2017-03-08] MEDS ORDERED: morphine INJ 10 MG/ML 1ML (SYR OR VIAL) IV PRN (11:15)
[2017-03-08] MEDS: fentaNYL INJECTION 100 MCG/2 ML AMP IVP PRN ×4 (11:30→11:55)
[2017-03-08] MEDS: MIDAZOLAM 2 MG/2 ML (VERSED) VIAL IV PRN ×4 (11:31→11:50)
[2017-03-08 12:30] VITALS: BP 135/58
[2017-03-08] MEDS ORDERED: HURRICAINE EXT TUBE (BENZOCAINE) XX ONE (12:30)
[2017-03-08] MEDS ORDERED: LIDOCAINE JELLY 2% (XYLOCAINE) 5 ML TUBE TOP ONE (12:30)
[2017-03-08 13:05] VITALS: BP 107/55
[2017-03-08 13:06] VITALS: BP 107/55
--- NOTE | 2017-03-09 14:23 | OPERATIVE REPORT ---
DATE OF SERVICE: 03/08/2017 ATTENDING PRIMARY CARE PHYSICIAN: Dr. Dwayne Seaman. PREOPERATIVE DIAGNOSES: Gastroesophageal reflux disease, epigastric pain, dysphagia, right upper abdominal quadrant pain, history of polyps. POSTOPERATIVE DIAGNOSES: Reflux esophagitis between class B and C with a distal esophageal stricture, large hiatal hernia of approximately 5 cm in size, mild to moderate gastritis. Chronic stage I external and internal hemorrhoids, moderate sigmoid diverticulosis, no polyps identified. PROCEDURES: EGD with biopsy and dilatation. Colonoscopy. SURGEON: Dr. Kingston Wade. ANESTHESIA: Conscious sedation. ESTIMATED BLOOD LOSS: Minimal. FINDINGS: EGD, reflux esophagitis between class B and C with a distal esophageal stricture and Schatzki's ring. A large hiatal hernia approximately 5 cm in size, mild to moderate gastritis, pylorus and duodenum were normal with no distal obstructions. Colonoscopy, chronic stage I external and internal hemorrhoids, not actively edematous nor inflamed and no bleeding. There was a mild to moderate sigmoid diverticulosis, no mucosal inflammatory changes to indicate any active diverticulitis. The remainder of the colon and rectum were normal. There were no polyps identified. DISPOSITION: The patient tolerated the procedure well. INDICATIONS: The patient is a 66-year-old female, who has had issues with reflux, heartburn type of symptoms, gastroesophageal reflux disease, peptic ulcer disease, as well as dysphagia. She also had reported a pain; she did develop pain after eating meals. She did have eventual other workup performed, which did show gallstones as well. She also does have a history of colon polyps and her last colonoscopy was in 2009. The patient did have a myocardial infarction in October 2016 requiring cardiac catheterization and two stents placed and is currently on aspirin and Plavix. It was decided to proceed with the EGD and colonoscopy; however, due to her high risk of thrombosis of the area of catheterization and stenting, we will have her continue with aspirin and Plavix and await cholecystectomy until March of 2017. DESCRIPTION OF PROCEDURE: The patient was brought to the endoscopy suite, laid in the left lateral decubitus position. After adequate IV pain and sedative medications and conscious sedation anesthesia, the mouthpiece was applied. The endoscope was placed in the mouth, visualizing the pharynx and hypopharyngeal region. Vocal cords, epiglottis, and vallecula identified and appeared to be normal. The endoscope was then gently intubated at the esophageal opening and esophagus was insufflated. The endoscope was then advanced to the first, second and third portions of the esophagus. At the level of the GE junction, a reflux esophagitis between class B and C identified with a mild distal esophageal stricture and Schatzki's ring identified. A biopsy was taken of this region using forceps and electrocautery with visualization of good hemostasis. We also proceeded with dilatation of this area. A CRE fixed guidewire balloon was placed and we first proceeded with 3 atmospheres of pressure or 18 mm in diameter with minimal resistance. We then proceeded to 4.5 atmospheres of pressure or 19 mm in diameter with again minimal resistance. We then proceeded to 6 atmospheres of pressure or 20 mm in diameter with mild to moderate resistance and left this in place for approximately 60 seconds. The balloon was then desufflated and removed. There was a small tear in the Schatzki's ring; however, this was superficial and not deep. No active bleeding identified. The endoscope was then easily advanced in the stomach and the endoscope retroflexed, visualizing a large hiatal hernia approximately 5 cm in size. There was also a mild to moderate gastritis noted. There were no formal ulcers with a few small benign hyperplastic polyps of the stomach identified. A biopsy was taken of the stomach antrum with forceps and electrocautery with visualization of good hemostasis. The endoscope was then advanced to the pylorus and the first and second portions of the duodenum, which were normal with no distal obstructions. The endoscope was then slowly withdrawn taking a second look and suctioning of residual air with no additional findings. The patient tolerated this portion of the procedure well. We will have her continue with her omeprazole on a daily basis as well as avoidance of spicy, greasy and acidic foods as well as taking small and more frequent meals and avoidance of eating at night. Under the same conscious sedation anesthesia, we then proceeded with the colonoscopy portion of the procedure. A digital rectal examination was performed, which revealed chronic mild stage I external and internal hemorrhoids, not actively edematous or inflamed and no bleeding. Normal sphincter tone was felt and there were no palpable masses. The endoscope was then intubated to the anus and rectum gently insufflated. The endoscope was then advanced to the valves of Wilcox of the rectum with no polyps or any neoplasms identified. Through the sigmoid colon, a mild to moderate sigmoid diverticulosis identified. There were no mucosal inflammatory changes to indicate any active diverticulitis. The endoscope was then advanced to the remainder of the descending, transverse and ascending colon to the cecum. These segments were normal. There were no polyps or any neoplasms identified. The endoscope was then slowly withdrawn taking a second look and suctioning all residual air with no additional findings. The patient tolerated this portion of the procedure well. We will recommend continued medical management with a high fiber diet with at least 25 to 30 grams of fiber per day as well as at least 64 fluid ounces of water daily to promote soft stools on a daily basis. There were no polyps identified on this colonoscopy and she does not have any family history of colon cancer; however, she does have three sisters with a history of breast cancer and we will recommend a followup colonoscopy in approximately 7 years. Job ID: [id number] DocumentID: [id number] Dictated Date: 03/08/2017 12:28:13 Judo Teacher Date: 03/08/2017 17:23:23 Dictated By: KINGSTON WADE MD
== END 2017-03-08 13:30 | disposition home or self-care (01) ==
LOC: SDC 09:04
PROVIDERS: ATTEND Surgery
DX: Z12.11 Encounter for screening for malignant neoplasm of colon (principal); K57.30 Diverticulosis of large intestine without perforation or abscess without bleeding; K21.0 Gastro-esophageal reflux disease with esophagitis; K22.2 Esophageal obstruction; K44.9 Diaphragmatic hernia without obstruction or gangrene; K29.70 Gastritis, unspecified, without bleeding; K64.0 First degree hemorrhoids; K80.20 Calculus of gallbladder without cholecystitis without obstruction; Z86.010 Personal history of colon polyps; I10 Essential (primary) hypertension; E78.00 Pure hypercholesterolemia, unspecified; I25.10 Atherosclerotic heart disease of native coronary artery without angina pectoris; F32.9 Major depressive disorder, single episode, unspecified; I25.2 Old myocardial infarction; Z95.5 Presence of coronary angioplasty implant and graft; Z87.891 Personal history of nicotine dependence; Z79.02 Long term (current) use of antithrombotics/antiplatelets; Z79.899 Other long term (current) drug therapy
CPT/HCPCS: 36415; 85027; 87081; 88305

== ENCOUNTER 2017-03-14 09:28 | Outpatient (RCR) | payer MEDICARE, OTHER | END 2017-03-25 | disposition home or self-care (01) | LOC: CR 09:28 | PROVIDERS: ATTEND Internal Medicine Cardiovascular Disease | DX: Z48.812 Encounter for surgical aftercare following surgery on the circulatory system (principal); Z95.5 Presence of coronary angioplasty implant and graft | CPT/HCPCS: 93798 ==

== ENCOUNTER 2017-04-04 09:28 | Outpatient (RCR) | payer MEDICARE, OTHER | END 2017-04-14 | disposition home or self-care (01) | LOC: CR 09:28 | PROVIDERS: ATTEND Internal Medicine Cardiovascular Disease | DX: Z48.812 Encounter for surgical aftercare following surgery on the circulatory system (principal); Z95.5 Presence of coronary angioplasty implant and graft; I25.2 Old myocardial infarction | CPT/HCPCS: 93798 ==

== ENCOUNTER → 2017-04-23 | Outpatient (CLI) | payer MEDICARE, OTHER ==
[2017-04-23 09:01] LABS: ALANINE AMINOTRANSFERASE 20 U/L (0-55); ALBUMIN 3.8 GM/DL (3.2-4.5); ANION GAP 7 MMOL/L (5-14); ASPARTATE AMINO TRANSFERASE 20 U/L (5-34); BILIRUBIN,TOTAL 0.4 MG/DL (0.1-1.0); BLOOD UREA NITROGEN 11 MG/DL (7-18); BUN/CREATININE RATIO 18; CALCIUM 8.9 MG/DL (8.5-10.1); CARBON DIOXIDE 27 MMOL/L (21-32); CHLORIDE 107 MMOL/L (98-107); CHOLESTEROL 229 MG/DL (< 200); CREATININE SERUM 0.61 MG/DL (0.60-1.30); DIRECT LDL 142 MG/DL (1-129); GFR ESTIMATED > 60; GLUCOSE 104 MG/DL (70-105); POTASSIUM 3.6 MMOL/L (3.6-5.0); SODIUM 141 MMOL/L (135-145); TOTAL PROTEIN 7.4 GM/DL (6.4-8.2); TRIGLYCERIDES 241 MG/DL (<150); VLDL CHOLESTEROL 48 MG/DL (5-40)
== END ==
LOC: LAB 08:27
PROVIDERS: ATTEND Internal Medicine Cardiovascular Disease
DX: I25.10 Atherosclerotic heart disease of native coronary artery without angina pectoris (principal); I10 Essential (primary) hypertension; R09.89 Other specified symptoms and signs involving the circulatory and respiratory systems; E78.2 Mixed hyperlipidemia
CPT/HCPCS: 36415; 80053; 80061

== ENCOUNTER 2017-05-18 09:19 | Outpatient (RCR) | payer MEDICARE, OTHER | END 2017-07-22 | disposition home or self-care (01) | LOC: CR 09:19 | PROVIDERS: ATTEND Internal Medicine Cardiovascular Disease | DX: Z48.812 Encounter for surgical aftercare following surgery on the circulatory system (principal); I25.2 Old myocardial infarction; Z95.5 Presence of coronary angioplasty implant and graft | CPT/HCPCS: 93798 ==

== ENCOUNTER → 2017-08-08 | Outpatient (CLI) | payer MEDICARE, OTHER ==
[~2017-08-08] MED LIST changes: +ROSU5TAB11 PO; -ROSU5TAB9 PO
[2017-08-08 09:53] LABS: ALBUMIN 3.9 GM/DL (3.2-4.5); BILIRUBIN,DIRECT 0.2 MG/DL (0.0-0.3); BILIRUBIN,INDIRECT 0.3 MG/DL; BILIRUBIN,TOTAL 0.5 MG/DL (0.1-1.0); TOTAL PROTEIN 7.4 GM/DL (6.4-8.2)
== END ==
LOC: LAB 08:49
PROVIDERS: ATTEND Physician Assistant
DX: E78.2 Mixed hyperlipidemia (principal)
CPT/HCPCS: 36415; 80061; 80076

== ENCOUNTER → 2018-02-15 | Outpatient (CLI) | payer MEDICARE, OTHER ==
[~2018-02-15] MED LIST changes: -ROSU5TAB11 PO; +ROSU5TAB12 PO
== END ==
LOC: CARD 11:35
PROVIDERS: ATTEND Internal Medicine Cardiovascular Disease
DX: I25.10 Atherosclerotic heart disease of native coronary artery without angina pectoris (principal); E78.2 Mixed hyperlipidemia; R09.89 Other specified symptoms and signs involving the circulatory and respiratory systems; I08.1 Rheumatic disorders of both mitral and tricuspid valves
CPT/HCPCS: 93306

== ENCOUNTER → 2018-02-27 | Outpatient (CLI) | payer MEDICARE, OTHER ==
[~2018-02-27] MED LIST changes: +CATHETER FLUSH 10 ML SYR IV PRN; +meTOprolol 5 MG/5 ML (LOPRESSOR) VIAL ONE
[2018-02-27 13:26] VITALS: BP 118/81
[2018-02-27 13:33] VITALS: BP 202/82
== END ==
LOC: CARD 11:30
PROVIDERS: ATTEND Internal Medicine Cardiovascular Disease
DX: I48.91 Unspecified atrial fibrillation (principal); I25.10 Atherosclerotic heart disease of native coronary artery without angina pectoris; R09.89 Other specified symptoms and signs involving the circulatory and respiratory systems; E78.2 Mixed hyperlipidemia
CPT/HCPCS: 78452; 93017; 93225; 93226

== ENCOUNTER → 2018-10-17 | Outpatient (CLI) | payer MEDICARE, OTHER ==
[~2018-10-17] MED LIST changes: -CATHETER FLUSH 10 ML SYR IV PRN; -meTOprolol 5 MG/5 ML (LOPRESSOR) VIAL ONE
--- NOTE | 2018-10-17 15:49 | Diagnostic Imaging Report ---
PROCEDURE: MRI right joint upper extremity without contrast. TECHNIQUE: Multiplanar, multisequence non contrast-enhanced MRI of the right upper extremity was accomplished. INDICATION: Right shoulder pain, fall two months ago, decreased range of motion and weakness. COMPARISON: None. FINDINGS: No acute fracture is seen in the right shoulder. Alignment appears normal. There is a moderate right glenohumeral joint effusion with significant fluid in the proximal long head of the biceps tendon sheath. There are moderate degenerative changes in the acromioclavicular joint. There is a near full-thickness articular surface tear of the supraspinatus tendon which measures approximately 1.5 cm AP. This appears to extend posteriorly into a high-grade partial thickness tear at the infraspinatus. The subscapularis tendon demonstrates tendinosis with low-grade partial-thickness intrasubstance tearing at the insertion. The teres minor tendon is intact. There is moderate atrophy seen throughout the rotator cuff musculature. The long head of the biceps tendon demonstrates marked tendinosis proximally with a high-grade partial tear (image 13 series 3). The glenoid labrum is suboptimally evaluated in the absence of intrathecal contrast but no large para-labral cysts are seen. The acromion has a curved undersurface without hooking. The coracoclavicular and coracoacromial ligaments appear to be intact. The soft tissues about the right shoulder are otherwise unremarkable. IMPRESSION: 1. Near full-thickness tear of the right supraspinatus tendon extending posteriorly into a high-grade partial thickness tear of the infraspinatus. 2. Tendinosis with low-grade partial tearing of the subscapularis tendon. 3. Marked tendinosis and high-grade partial tear of the proximal long head of the biceps tendon. 4. Moderate right shoulder joint effusion. Dictated by: Dictated on workstation # [id number]
== END ==
LOC: RAD 13:20
PROVIDERS: ATTEND Nurse Practitioner Family
DX: S46.011A Strain of muscle(s) and tendon(s) of the rotator cuff of right shoulder, initial encounter (principal); S46.211A Strain of muscle, fascia and tendon of other parts of biceps, right arm, initial encounter; W19.XXXA Unspecified fall, initial encounter
CPT/HCPCS: 73221

== ENCOUNTER → 2019-02-28 | Outpatient (CLI) | payer MEDICARE, OTHER ==
[~2019-02-28] MED LIST changes: -ROSU5TAB12 PO; +ROSU5TAB13 PO
[2019-02-28 10:58] LABS: ALANINE AMINOTRANSFERASE 19 U/L (0-55); ALBUMIN 4.1 GM/DL (3.2-4.5); ALKALINE PHOSPHATASE 91 U/L (40-136); BILIRUBIN,TOTAL 0.3 MG/DL (0.1-1.0); BUN/CREATININE RATIO 20; CALCIUM 9.7 MG/DL (8.5-10.1); CARBON DIOXIDE 26 MMOL/L (21-32); CHLORIDE 104 MMOL/L (98-107); CHOLESTEROL 194 MG/DL (< 200); CREATININE SERUM 0.71 MG/DL (0.60-1.30); GFR ESTIMATED > 60; GLUCOSE 105 MG/DL (70-105); HDL CHOLESTEROL 77 MG/DL (40-60); POTASSIUM 3.9 MMOL/L (3.6-5.0); SODIUM 140 MMOL/L (135-145); TOTAL PROTEIN 7.7 GM/DL (6.4-8.2); TRIGLYCERIDES 124 MG/DL (<150); VLDL CHOLESTEROL 25 MG/DL (5-40)
== END ==
LOC: LAB 10:27
PROVIDERS: ATTEND Internal Medicine Cardiovascular Disease
DX: I10 Essential (primary) hypertension (principal); I25.10 Atherosclerotic heart disease of native coronary artery without angina pectoris; I65.29 Occlusion and stenosis of unspecified carotid artery; E78.2 Mixed hyperlipidemia; R09.89 Other specified symptoms and signs involving the circulatory and respiratory systems
CPT/HCPCS: 36415; 80053; 80061

== ENCOUNTER → 2019-03-03 | Outpatient (CLI) | payer MEDICARE, OTHER | LOC: CARD 08:45 | PROVIDERS: ATTEND Internal Medicine Cardiovascular Disease | DX: I25.10 Atherosclerotic heart disease of native coronary artery without angina pectoris (principal); I65.23 Occlusion and stenosis of bilateral carotid arteries; I10 Essential (primary) hypertension; E78.2 Mixed hyperlipidemia | CPT/HCPCS: 93306 ==

== ENCOUNTER → 2019-03-19 | Outpatient (CLI) | payer MEDICARE, OTHER ==
[~2019-03-19] MED LIST changes: +CATHETER FLUSH 10 ML SYR IV PRN
[2019-03-19 13:58] VITALS: BP 159/74
[2019-03-19 14:02] VITALS: BP 201/78
[2019-03-19 14:04] VITALS: BP 193/80
--- NOTE | 2019-03-19 16:26 | STRESS TEST ---
DATE OF SERVICE: 03/19/2019 EXERCISE MYOVIEW STRESS TEST REPORT REFERRING PHYSICIAN: Dwayne Seaman MD Baseline heart rate is 90, baseline blood pressure 159/74. Baseline EKG is sinus rhythm with no ischemic changes. In summary, the patient was injected with 9.7 mCi of technetium-99 Myoview and the resting images were obtained. Then, the patient started exercising with a baseline heart rate, blood pressure and EKG mentioned above, was able to exercise for 2 minutes 45 seconds on standard Swapnil protocol. With peak exercise level, EKG was showing minimal nondiagnostic changes. Blood pressure at peak was 201/78. During recovery, heart rate and blood pressure returned to baseline. EKG returned to baseline. The resting and stress images were reviewed and compared in the short axis, horizontal long axis, and vertical long axis views. Review of the images showed no significant ischemia or infarction. SSS is 1, SDS 1, TID value 1.04. On the gated images, the left ventricle appeared to be in normal size with normal contractility. Calculated ejection fraction 54%. CONCLUSION: 1. Poor exercise tolerance, a total of 2 minutes 45 seconds on standard Swapnil protocol, total of 4.2 METS achieving 96% of maximum expected heart rate. 2. Severe hypertensive response to exercise with peak blood pressure 201/78 returned to baseline during recovery. 3. Minimal nondiagnostic EKG changes with exercise returned to baseline during recovery. 4. Normal left ventricular size with mild diffuse hypokinesia, calculated ejection fraction 54%. Job ID: [id number] DocumentID: [id number] Dictated Date: 03/19/2019 16:12:05 [employer] Date: 03/19/2019 16:26:23 Dictated By: RON CHATMAN MD
== END ==
LOC: CARD 12:13
PROVIDERS: ATTEND Internal Medicine Cardiovascular Disease
DX: I25.10 Atherosclerotic heart disease of native coronary artery without angina pectoris (principal); I10 Essential (primary) hypertension; I65.29 Occlusion and stenosis of unspecified carotid artery; E78.2 Mixed hyperlipidemia
CPT/HCPCS: 78452; 93017

== ENCOUNTER 2019-07-17 19:47 | Outpatient (CLI) | payer MEDICARE, OTHER ==
[~2019-07-17 19:47] MED LIST changes: -CATHETER FLUSH 10 ML SYR IV PRN
== END 2019-07-18 07:00 | disposition home or self-care (01) ==
LOC: SLEEP 19:47
PROVIDERS: ATTEND Internal Medicine Cardiovascular Disease
DX: G47.33 Obstructive sleep apnea (adult) (pediatric) (principal); G47.00 Insomnia, unspecified; G47.61 Periodic limb movement disorder; I25.9 Chronic ischemic heart disease, unspecified; I25.10 Atherosclerotic heart disease of native coronary artery without angina pectoris; I10 Essential (primary) hypertension; I65.23 Occlusion and stenosis of bilateral carotid arteries; E78.2 Mixed hyperlipidemia
CPT/HCPCS: 95810

== ENCOUNTER 2020-07-22 08:20 | Emergency (ER) | payer MEDICARE, OTHER ==
[~2020-07-22] VITALS: Ht 165 cm; Wt 68.0 kg
[~2020-07-22 08:20] MED LIST changes: +PYRI100T10 PO; -PYRI100T2 PO
[2020-07-22 08:34] LABS: BASOPHILS # (AUTO) 0.1 10^3/uL (0.0-0.1); BASOPHILS % (AUTO) 1 % (0-10); EOSINOPHILS # (AUTO) 0.2 10^3/uL (0.0-0.3); EOSINOPHILS % (AUTO) 2 % (0-10); HEMATOCRIT 32 % (35-52); HEMOGLOBIN 9.4 g/dL (11.5-16.0); LYMPHOCYTES # (AUTO) 2.6 10^3/uL (1.0-4.0); LYMPHOCYTES % (AUTO) 32 % (12-44); MEAN CORPUSCULAR HEMOGLOBIN 23 pg (25-34); MEAN CORPUSCULAR HGB CONC 30 g/dL (32-36); MEAN CORPUSCULAR VOLUME 78 fL (80-99); MEAN PLATELET VOLUME 8.9 fL (9.0-12.2); MONOCYTES # (AUTO) 0.6 10^3/uL (0.0-1.0); MONOCYTES % (AUTO) 7 % (0-12); NEUTROPHILS # (AUTO) 4.9 10^3/uL (1.8-7.8); NEUTROPHILS % (AUTO) 58 % (42-75); PLATELET COUNT 368 10^3/uL (130-400); WHITE BLOOD COUNT 8.3 10^3/uL (4.3-11.0)
--- NOTE | 2020-07-22 08:39 | NUR ---
TALKED WITH PTS AMADEO AND UPDATE GIVEN. AMADEO STATES SHE WILL UPDATE THE FAMILY.
[2020-07-22 08:45] LABS: ALBUMIN 4.1 GM/DL (3.2-4.5)
[2020-07-22 08:46] LABS: CHLORIDE 104 MMOL/L (98-107); POTASSIUM 3.5 MMOL/L (3.6-5.0); SODIUM 139 MMOL/L (135-145)
[2020-07-22 08:47] LABS: CALCIUM 9.2 MG/DL (8.5-10.1)
[2020-07-22 08:48] LABS: GLUCOSE 228 MG/DL (70-105); TOTAL PROTEIN 7.9 GM/DL (6.4-8.2)
[2020-07-22 08:49] LABS: CARBON DIOXIDE 20 MMOL/L (21-32); INR 0.9 (0.8-1.4)
[2020-07-22 08:50] LABS: BILIRUBIN,TOTAL 0.3 MG/DL (0.1-1.0)
[2020-07-22 08:51] LABS: ALKALINE PHOSPHATASE 93 U/L (40-136)
[2020-07-22 08:52] LABS: CREATININE SERUM 0.85 MG/DL (0.60-1.30); GFR ESTIMATED > 60
[2020-07-22 08:53] LABS: BUN/CREATININE RATIO 16
[2020-07-22 08:54] LABS: MAGNESIUM 1.8 MG/DL (1.6-2.4)
[2020-07-22 08:55] LABS: ALANINE AMINOTRANSFERASE 18 U/L (0-55)
[2020-07-22] MEDS ORDERED: LACTATED RINGERS 1,000 ML IV ONE (09:15)
--- NOTE | 2020-07-22 09:19 | Diagnostic Imaging Report ---
INDICATION: Chest pain. COMPARISON: 11/10/2016 FINDINGS: Single frontal view of the chest demonstrates normal heart size and pulmonary vascularity. The lungs are well aerated and clear. No large pleural effusion or pneumothorax is seen. The visualized osseous structures show no acute abnormalities. IMPRESSION: 1. No acute cardiopulmonary process. Dictated by: Dictated on workstation # [id number]
--- NOTE | 2020-07-22 09:53 | ED Syncope ---
General Chief Complaint: Dizziness/Syncope Stated Complaint: SYNCOPE Nursing Triage Note: ARRIVED VIA EMS FROM WORK. STATES SHE WAS IN THE KITCHEN AT WORK WHEN SHE STARTED FEELING VERY HOT AND STARTED SEEING SPOTS. STATES SHE DID NOT PASS OUT BUT FELT LIKE SHE MIGHT. DENIES CHEST PAIN. Source of Information: Patient, EMS Exam Limitations: No Limitations History of Present Illness Date Seen by Provider: Jul 22, 2020 Time Seen by Provider: 08:21 Initial Comments This 69-year-old woman presents to the emergency room via EMS after having a near syncopal episode at work today. She was walking during the episode when she suddenly became lightheaded and was "seeing spots. She also felt ana laura phoretic and short of breath at the time. She denies any chest pain. She did not lose consciousness and she continued walking at the time. Symptoms lasted about 10 minutes and have now dissipated. She has had prior episodes that were less intense and shorter in nature. Allergies and Home Medications Allergies Coded Allergies: Penicillins (Unverified Allergy, Unknown, 12/24/14) Home Medications Alprazolam 0.5 Mg Tablet, 0.25-0.5 MG PO BID PRN for ANXIETY, (Reported) TAKES 1/2 TO 1 (0.5MG) TABLET Ascorbate Calcium 500 Mg Tablet, 500 MG PO DAILY, (Reported) Aspirin 81 Mg Tablet.dr, 81 MG PO DAILY, (Reported) Clopidogrel Bisulfate 75 Mg Tablet, 75 MG PO DAILY Prescribed by: RON CHATMAN on 11/12/16811 Metoprolol Succinate 50 Mg Tab.er.24h, 50 MG PO DAILY Prescribed by: RON CHATMAN on 11/12/16811 [place] 3 Polyunsat Fatty Acids 1,000 Mg Cap, 1,000 MG PO DAILY, (Reported) Omeprazole Magnesium 20 Mg Tablet.dr, 20 MG PO BID, (Reported) Pyridoxine HCl 100 Mg Tablet, 100 MG PO DAILY, (Reported) Rosuvastatin Calcium 5 Mg Tablet, 5 MG PO HS Prescribed by: RON CHATMAN on 11/12/16811 Turmeric Root Extract 500 Mg Capsule, 500 MG PO DAILY, (Reported) Vitamin E Acetate 400 Unit Capsule, 400 UNIT PO DAILY, (Reported) Patient Home Medication List Home Medication List Reviewed: Yes Review of Systems Constitutional: no symptoms reported EENTM: see HPI Respiratory: see HPI Cardiovascular: see HPI Gastrointestinal: no symptoms reported Genitourinary: no symptoms reported Musculoskeletal: no symptoms reported Skin: no symptoms reported Psychiatric/Neurological: No Symptoms Reported Past Lwzoazv-Edacuw-Iecsob Hx Past Med/Social Hx: Reviewed Nursing Past Med/Soc Hx Patient Social History Alcohol Use: Occasionally Uses Recreational Drug Use: No Smoking Status: Former Smoker Type Used: Cigarettes Former Smoker, Quit: Jul 16, 1976 Recent Foreign Travel: No Contact w/Someone Who Travel: No Recent Infectious Disease Expo: No Recent Hopitalizations: Yes (October-) Immunizations Up To Date Date of Pneumonia Vaccine: Apr 17, 2016 Date of Influenza Vaccine: Apr 17, 2016 Seasonal Allergies Seasonal Allergies: No Past Medical History Surgeries: Yes (Parotid tumor removal, Ignacio removal leg) Section, Coronary Stent Respiratory: No Cardiac: Yes (STENTS X2-OCTOBER 2016) Heart Attack, High Cholesterol, Hypertension Neurological: No Reproductive Disorders: No Sexually Transmitted Disease: No HIV/AIDS: No Genitourinary: No Gastrointestinal: Yes (erosive esophagitis) Gastroesophageal Reflux, Diverticulosis, Polyps, Hiatal Hernia Musculoskeletal: Yes (Osteopenia) Chronic Back Pain Endocrine: No Loss of Vision: Bilateral Hearing Impairment: Denies Cancer: No Psychosocial: Yes (HX DEPRESSION- PASSED APR 2016) Anxiety, Depression Integumentary: No Blood Disorders: No Adverse Reaction/Blood Tranf: No Physical Exam Vital Signs Vital Signs - First Documented 07/22/20 08:20 Temp 37.0 Pulse 69 Resp 16 B/P (MAP) 123/56 (78) Pulse Ox 98 O2 Delivery Room Air Capillary Refill : Less Than 3 Seconds Height, Weight, BMI Height: 5'6.00" Weight: 148lbs. 2.0oz. 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 as Tested Skin: Normal Color, Warm/Dry Progress/Results/Core Measures Results/Orders Lab Results Laboratory Tests Test 07/22/20 08:23 07/22/20 08:36 Range/Units White Blood Count 8.3 4.3-11.0 10^3/uL Red Blood Count 4.09 3.80-5.11 10^6/uL Hemoglobin 9.4 L 11.5-16.0 g/dL Hematocrit 32 L 35-52 % Mean Corpuscular Volume 78 L 80-99 fL Mean Corpuscular Hemoglobin 23 L 25-34 pg Mean Corpuscular Hemoglobin Concent 30 L 32-36 g/dL Red Cell Distribution Width 16.6 H 10.0-14.5 % Platelet Count 368 130-400 10^3/uL Mean Platelet Volume 8.9 L 9.0-12.2 fL Immature Granulocyte % (Auto) 1 % Neutrophils (%) (Auto) 58 42-75 % Lymphocytes (%) (Auto) 32 12-44 % Monocytes (%) (Auto) 7 0-12 % Eosinophils (%) (Auto) 2 0-10 % Basophils (%) (Auto) 1 0-10 % Neutrophils # (Auto) 4.9 1.8-7.8 10^3/uL Lymphocytes # (Auto) 2.6 1.0-4.0 10^3/uL Monocytes # (Auto) 0.6 0.0-1.0 10^3/uL Eosinophils # (Auto) 0.2 0.0-0.3 10^3/uL Basophils # (Auto) 0.1 0.0-0.1 10^3/uL Immature Granulocyte # (Auto) 0.0 0.0-0.1 10^3/uL Prothrombin Time 13.0 12.2-14.7 SEC INR Comment 0.9 0.8-1.4 Activated Partial Thromboplast Time 24 24-35 SEC Sodium Level 139 135-145 MMOL/L Potassium Level 3.5 L 3.6-5.0 MMOL/L Chloride Level 104 98-107 MMOL/L Carbon Dioxide Level 20 L 21-32 MMOL/L Anion Gap 15 H 5-14 MMOL/L Blood Urea Nitrogen 14 7-18 MG/DL Creatinine 0.85 0.60-1.30 MG/DL Estimat Glomerular Filtration Rate > 60 BUN/Creatinine Ratio 16 Glucose Level 228 H 70-105 MG/DL Calcium Level 9.2 8.5-10.1 MG/DL Corrected Calcium 9.1 8.5-10.1 MG/DL Magnesium Level 1.8 1.6-2.4 MG/DL Total Bilirubin 0.3 0.1-1.0 MG/DL Aspartate Amino Transf (AST/SGOT) 18 5-34 U/L Alanine Aminotransferase (ALT/SGPT) 18 0-55 U/L Alkaline Phosphatase 93 40-136 U/L Myoglobin 30.3 10.0-92.0 NG/ML Troponin I < 0.028 <0.028 NG/ML Total Protein 7.9 6.4-8.2 GM/DL Albumin 4.1 3.2-4.5 GM/DL Urine Color YELLOW Urine Clarity CLEAR Urine pH 6.0 5-9 Urine Specific [place] >=1.030 1.016-1.022 Urine Protein 2+ H NEGATIVE Urine Glucose (UA) NEGATIVE NEGATIVE Urine Ketones NEGATIVE NEGATIVE Urine Nitrite NEGATIVE NEGATIVE Urine Bilirubin NEGATIVE NEGATIVE Urine Urobilinogen 0.2 < = 1.0 MG/DL Urine Leukocyte Esterase NEGATIVE NEGATIVE Urine RBC (Auto) 1+ H NEGATIVE Urine RBC 2-5 H /HPF Urine WBC 2-5 /HPF Urine Squamous Epithelial Cells 5-10 /HPF Urine Crystals NONE /LPF Urine Bacteria FEW H /HPF Urine Casts PRESENT /LPF Urine Hyaline Casts 5-10 H /LPF Urine Granular Casts 2-5 H /LPF Urine Mucus MODERATE H /LPF Urine Culture Indicated NO My Orders Orders - LUSI RANKIN MD Cbc With Automated Diff (07/22/20 08:28) Magnesium (07/22/20 08:28) Chest 1 View, Ap/Pa Only (07/22/20 08:28) Ekg Tracing (07/22/20 08:28) Comprehensive Metabolic Panel (07/22/20 08:28) Myoglobin Serum (07/22/20 08:28) Protime With Inr (07/22/20 08:28) Partial Thromboplastin Time (07/22/20 08:28) O2 (07/22/20 08:28) Monitor-Rhythm Ecg Trace Only (07/22/20 08:28) Ed Iv/Invasive Line Start (07/22/20 08:28) Troponin I (07/22/20 08:28) Lactated Ringers (Lr 1000 Ml Iv Solution (07/22/20 09:15) Ua Culture If Indicated (07/22/20 09:57) Hemoglobin A1c (07/22/20 11:04) Medications Given in ED Current Medications Medications Dose Ordered Sig/Rajesh Route Start Time Stop Time Status Last Admin Dose Admin Lactated Ringer's 1,000 ml @ 0 mls/hr Q0M ONCE IV 07/22/20 09:15 07/22/20 09:16 DC 07/22/20 09:53 1,000 MLS/HR Vital Signs/I&O 07/22/20 07/22/20 08:20 11:24 Temp 37.0 Pulse 69 87 Resp 16 16 B/P (MAP) 123/56 (78) 130/64 Pulse Ox 98 97 O2 Delivery Room Air Room Air Blood Pressure Mean: 78 Progress Progress Note : Time: 10:56 Progress Note Patient received about 800 mL of normal saline at this time and symptoms have improved. Upon standing her blood pressure is 130/65 which is an improvement. She had no dizziness upon standing. I have multiple concerns with her health at this time. She is hyperglycemic and may have new onset diabetes. This may be causing some hypovolemia through diuresis. I am also concerned about her anemia with history of polyps as well as her hematuria. She reports numerous episodes of hematuria in the past. I would advise she discuss this with her primary care provider and perhaps seek a consultation with a urologist. She should also check with her surgeon or cadd operator regarding when she is due for her next colonoscopy. I have advised that she start a low sugar, low carbohydrate diet and increase her water intake. Initial ECG Impression Date: Jul 22, 2020 Initial ECG Impression Time: 08:20 Initial ECG Rate: 67 Initial ECG Rhythm: Normal Sinus Initial ECG Intervals: Normal Initial ECG Impression: Normal Comment Normal sinus rhythm with no ST elevation or depression. No abnormal intervals or axis deviation. Departure Impression Primary Impression: Near syncope Additional Impressions: Hyperglycemia Hypovolemia Anemia Qualified Codes: D64.9 - Anemia, unspecified Disposition: 01 HOME, SELF-CARE Condition: Improved Departure-Patient Inst. Referrals: LATIA SEAMAN MD (PCP/Family) Primary Care Physician Patient Instructions: Hyperglycemia, Adult Add. Discharge Instructions: Please call Dr. Seaman today to arrange a follow-up appointment. You have multiple issues you need to follow-up on includin. Hyperglycemia - Your elevated blood sugar may represent a new diagnosis of diabetes. This may be causing you to spill sugar in your urine resulting in increased urination and dehydration. You should begin eating a low sugar, low carbohydrate diet and exercising routinely. Dr. Seaman can assist you with further evaluation and possible treatment for diabetes. An additional blood study called hemoglobin A1c was obtained in the emergency room to help determine if you have diabetes. Please review the results of this test with Dr. Seaman as it was not available at the time of your ER visit. 2. Anemia - The cause of your anemia is uncertain. In the context of blood in your urine and history of colon polyps, this needs to be worked up further. Please discuss this with Dr. Seaman. Consider a referral to a urologist to evaluate the cause of recurrent blood in your urine. Because you have had colon polyps in the past, you may need a repeat colonoscopy soon. Please discuss these referrals with Dr. Seaman. 3. Lightheadedness -Your lightheadedness may be related to diuresis from high blood sugars. Working on a low sugar, low carbohydrate diet should help with this. Increase your water intake as well. If you have persistent lightheadedness, consider stopping or having your metoprolol as metoprolol can slow heart rate and decreased blood pressure, this in turn may make your dizzin ess worse. 4. Call with any questions or concerns. Return to the emergency room if you have worsening conditions. All discharge instructions reviewed with patient and/or family. Voiced understanding. Copy Copies To 1: LATIA SEAMAN MD Copies To 2: RON CHATMAN MD, JOSHUA T MD Jul 22, 2020 09:53
[2020-07-22 10:05] LABS: BILIRUBIN,URINE NEGATIVE (NEGATIVE); CLARITY,URINE CLEAR; COLOR,URINE YELLOW; GLUCOSE, URINE (UA) NEGATIVE (NEGATIVE); KETONES,URINE NEGATIVE (NEGATIVE); LEUKOCYTE ESTERASE ,URINE NEGATIVE (NEGATIVE); NITRITE,URINE NEGATIVE (NEGATIVE); PROTEIN,URINE 2+ (NEGATIVE)
[2020-07-22 10:16] LABS: BACTERIA,URINE FEW /HPF
--- NOTE | 2020-07-22 10:58 | NUR ---
Angelica marinelli in EDM - 07/22/20 at 1100 by EMEKA PT STATES SHE FEELS "FUNNY" WHEN ASKED TO DESCRIBE SHE STATES SHE IS HAVING TROUBLE TALKING. 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
[2020-07-22 11:24] VITALS: BP 130/64
== END 2020-07-22 11:24 | disposition home or self-care (01) ==
LOC: EDUNIT# 08:20 → ER 08:21
DX: R55 Syncope and collapse (principal); R73.9 Hyperglycemia, unspecified; D64.9 Anemia, unspecified; E86.1 Hypovolemia; I10 Essential (primary) hypertension; E78.00 Pure hypercholesterolemia, unspecified; K21.9 Gastro-esophageal reflux disease without esophagitis; F41.9 Anxiety disorder, unspecified; F32.9 Major depressive disorder, single episode, unspecified; Z87.891 Personal history of nicotine dependence; Z88.0 Allergy status to penicillin; Z95.5 Presence of coronary angioplasty implant and graft; Z79.82 Long term (current) use of aspirin
CPT/HCPCS: 36415; 71045; 80053; 81000; 83036; 83735; 83874; 84484; 85025; 85610; 85730; 93005; 93041

== ENCOUNTER → 2020-08-06 | Outpatient (CLI) | payer MEDICARE, OTHER ==
--- NOTE | 2020-08-06 09:36 | Diagnostic Imaging Report ---
PROCEDURE: CT abdomen and pelvis without contrast. TECHNIQUE: Multiple contiguous axial images were obtained through the abdomen and pelvis without the use of intravenous contrast. Auto Exposure Controls were utilized during the CT exam to meet ALARA standards for radiation dose reduction. INDICATION: Microhematuria. Correlation is made with prior CT from 12/24/2014. FINDINGS: Lung bases are clear. There is a large hiatal hernia. Liver and gallbladder are unremarkable. No biliary ductal dilatation is seen. Pancreas and spleen are unremarkable. No adrenal mass is detected. Kidneys are unremarkable. No calculi are detected. There is no hydronephrosis. No definite ureteral or bladder calculi are seen. Aorta is calcified but nonaneurysmal. Small and large bowel loops are normal caliber. There is no obstruction. There is diverticulosis of the sigmoid but no evidence of acute diverticulitis. Uterus appears to be surgically absent. No abdominal or pelvic lymphadenopathy is seen. IMPRESSION: 1. Large hiatal hernia. 2. No evidence of urinary tract calculi or obstruction. 3. Uncomplicated diverticulosis. Dictated by: Dictated on workstation # [id number]
== END ==
LOC: RAD 08:57
PROVIDERS: ATTEND Urology
DX: K44.9 Diaphragmatic hernia without obstruction or gangrene (principal); K57.30 Diverticulosis of large intestine without perforation or abscess without bleeding; R31.29 Other microscopic hematuria
CPT/HCPCS: 74176

== ENCOUNTER → 2020-08-24 | Outpatient (CLI) | payer MEDICARE, OTHER | LOC: CARD 10:17 | PROVIDERS: ATTEND Internal Medicine Cardiovascular Disease | DX: I10 Essential (primary) hypertension (principal); R07.9 Chest pain, unspecified | CPT/HCPCS: 93306 ==

== ENCOUNTER → 2020-08-25 | Outpatient (CLI) | payer MEDICARE, OTHER ==
[~2020-08-25] VITALS: Ht 165 cm; Wt 68.0 kg
[~2020-08-25] MED LIST changes: +REGADENOSON 0.4 MG/5 ML SYR (LEXISCAN) IV ONE
[2020-08-25] MEDS: CATHETER FLUSH 10 ML SYR IV PRN ×2 (07:40→08:53)
[2020-08-25 08:51] VITALS: BP 138/74
== END ==
LOC: CARD 08:00
PROVIDERS: ATTEND Internal Medicine Cardiovascular Disease
DX: I10 Essential (primary) hypertension (principal); R07.9 Chest pain, unspecified
CPT/HCPCS: 78452; 93017; A9502

== ENCOUNTER → 2022-01-19 | Outpatient (CLI) | payer MEDICARE, OTHER ==
[~2022-01-19] MED LIST changes: -REGADENOSON 0.4 MG/5 ML SYR (LEXISCAN) IV ONE
== END ==
LOC: CARD 09:53
PROVIDERS: ATTEND Internal Medicine Cardiovascular Disease
DX: I10 Essential (primary) hypertension (principal)
CPT/HCPCS: 93306

== ENCOUNTER → 2022-02-27 | Outpatient (CLI) | payer MEDICARE, OTHER ==
[~2022-02-27] VITALS: Ht 165 cm; Wt 65.0 kg
[~2022-02-27] MED LIST changes: +CATHETER FLUSH 10 ML SYR IVP PRN
[2022-02-27 09:21] VITALS: BP 174/95
--- NOTE | 2022-02-27 11:08 | Cardiology Stress Test Report ---
Stress Test Report Date of Procedure/Referring: Date of Procedure: Feb 27, 2022 PCP Dwayne Murray MD Admitting Physician Admitting Physician: Attending Physician: Dia Cabrales MD Indications: HTN Baseline Heart Rate: 77 Baseline Blood Pressure: Blood Pressure Systolic: 174 Blood Pressure Diastolic: 95 Vital Signs Date Time Temp Pulse Resp B/P (MAP) Pulse Ox O2 Delivery O2 Flow Rate FiO2 02/27/22 09:21 75 20 174/95 (121) 97 Room Air Baseline Vital Signs Vital Signs Date Time Temp Pulse Resp B/P (MAP) Pulse Ox O2 Delivery O2 Flow Rate FiO2 02/27/22 09:21 75 20 174/95 (121) 97 Room Air Baseline EKG: Baseline EKG: NSR Summary: After explaining the procedure and details to the patient, she signed the consent and was brought to the stress nuclear laboratory. Patient exercised on standard Swapnil protocol, EKG, heart rate and blood pressure were monitored continuously, resting and stress doses of radio tracer were injected, imaging was acquired and reviewed in the short axis, horizontal long axis and vertical long axis views Patient was able to exercise for a total of 3 minutes on Swapnil protocol, METs 4.6 Maximum heart rate 149 Maximum blood pressure 191/92 Stress EKG, Minimal nondiagnostic changes Recovery EKG, Return to baseline TID: 1.06 SSS: 4 SDS: 4 EF: 60 Conclusion: 1. Poor exercise tolerance for 3 minutes on standard Swapnil protocol, 4.6 METS achieving 99% of maximal expected heart rate 2. Appropriate heart rate response to exercise with hypertensive response to exercise with peak blood pressure 191/92 return to baseline during recovery 3. Nondiagnostic EKG changes with exercise return to baseline during recovery 4. No significant ischemia or infarction on SPECT images 5. Normal left ventricular size, ejection fraction 60% Copy Copies To 1: DWAYNE MURRAY MD, BASHAR J MD Feb 27, 2022 11:08
== END ==
LOC: CARD 07:45
PROVIDERS: ATTEND Internal Medicine Cardiovascular Disease
DX: I10 Essential (primary) hypertension (principal)
CPT/HCPCS: 78452; 93017; A9502

== ENCOUNTER → 2022-03-07 | Outpatient (CLI) | payer MEDICARE, OTHER ==
[~2022-03-07] MED LIST changes: -CATHETER FLUSH 10 ML SYR IVP PRN
== END | disposition home or self-care (01) ==
LOC: PREOP 05:28
PROVIDERS: ATTEND Urology
DX: Z01.818 Encounter for other preprocedural examination (principal)

== ENCOUNTER → 2022-06-27 | Outpatient (CLI) | payer MEDICARE, OTHER ==
--- NOTE | 2022-06-28 11:50 | Diagnostic Imaging Report ---
INDICATION: Routine screening. COMPARISON: 08/18/2019 and 02/26/2017. TECHNIQUE: 2D and 3D bilateral screening mammography was performed with CAD. FINDINGS: Both breasts are heterogeneously dense, limiting the sensitivity of mammography. The parenchymal pattern is stable. There are scattered benign calcifications. No mass or malignant-appearing microcalcifications are seen. The axillae are unremarkable. IMPRESSION: No mammographic features suspicious for malignancy are identified. ACR BI-RADS Category 2: Benign findings. Result letter will be mailed to the patient. Note: At least 10% of breast cancer is not imaged by mammography. Dictated by: Dictated on workstation # [id number]
== END ==
LOC: RAD 08:45
PROVIDERS: ATTEND Obstetrics & Gynecology
DX: Z12.31 Encounter for screening mammogram for malignant neoplasm of breast (principal)
CPT/HCPCS: 77063; 77067